=== PATIENT | male | born 1955 | race Caucasian/White ===

== ENCOUNTER 2017-03-23 13:58 | Observation (INO) ==
[2017-03-23] MEDS ORDERED: 0.9 % Sodium Chloride 1,000 ML IVC ONE (15:24)
[2017-03-23] MEDS ORDERED: Ondansetron ODT 4 MG TAB.RAPDIS SL ONE (15:24)
[2017-03-23 15:38] LABS: Bilirubin,Urine Negative (Negative); Blood,Urine Negative (Negative); Clarity,Urine Clear (Clear); Color,Urine Yellow (Yellow); Glucose,Urine (UA) Normal (Normal); Ketones,Urine Negative (Negative); Leukocyte Esterase,Urine Negative (Negative); Nitrite,Urine Negative (Negative); Protein,Urine Negative (Neg-Trace); Specific Gravity,Urine 1.008 (1.010-1.025); Urobilinogen,Urine Normal (Normal)
[2017-03-23] MEDS ORDERED: Aspirin 81 MG TAB.CHEW PO STA (15:43)
[2017-03-23 15:52] LABS: Basophils # 0.1 K/mcL (0.0-0.2); Basophils % 0.8 %; Eosinophils # 0.2 K/mcL (0.0-0.6); Hematocrit 47.4 % (37.5-50.1); Hemoglobin 15.9 g/dL (12.9-16.9); Immature Granulocytes % 0.3 % (0-4); Lymphocytes # 2.1 K/mcL (0.6-4.6); Lymphocytes % 32.1 %; Mean Corpuscular HGB Conc 33.5 g/dL (31.6-35.5); Mean Corpuscular Hemoglobin 28.9 pg (28.0-33.3); Mean Platelet Volume 11.3 fL (9.4-12.4); Monocytes # 0.4 K/mcL (0.0-1.3); Monocytes % 6.2 %; Neutrophils # 3.8 K/mcL (1.6-8.9); Platelet Count 182 K/mcL (140-400); Red Blood Count 5.51 M/mcL (4.19-5.50); Red Cell Distribution Width 13.6 % (11.5-14.5); Segmented Neutrophils % 57.6 %
[2017-03-23 16:07] LABS: Alanine Aminotransferase 25 Units/L (0-55); Albumin 5.2 g/dL (3.5-5.0); Albumin/Globulin Ratio 1.3 (1.1-2.2); Alkaline Phosphatase 67 Units/L (38-126); Aspartate Amino Transferase 26 Units/L (5-34); BUN/Creatinine Ratio 9 (6-26); Bilirubin,Direct 0.2 mg/dL (0.0-0.5); Blood Urea Nitrogen 9 mg/dL (8-26); Calcium 10.9 mg/dL (8.6-10.8); Carbon Dioxide 28 mEq/L (19-29); Chloride 103 mEq/L (98-109); Glucose 124 mg/dL (70-99); Lipase 42 Units/L (8-78); Osmolality,Calculated 292 (280-300); Potassium 4.2 mEq/L (3.5-4.5); Sodium 141 mEq/L (136-145); Total Protein 9.2 g/dL (6.0-8.3); eGFR For African Americans > 60 (> 60); eGFR For Non-African Americans > 60 (> 60)
[2017-03-23] MEDS: Nitroglycerin 0.4 MG TAB.SUBL SL PRN ×3 (16:09→16:23)
--- NOTE | 2017-03-23 16:44 | Emergency Department Note ---
Disposition Clinical Impression: Nausea Chest pain Qualifiers: Chest pain type: unspecified Qualified Code(s): R07.9 - Chest pain, unspecified Abdominal pain Qualifiers: Abdominal location: lower abdomen, unspecified Qualified Code(s): R10.30 - Lower abdominal pain, unspecified Disposition: Admitted As Inpatient Condition: Good Time of Disposition: 17:09 Abdominal Pain HPI - General Chief Complaint: ED Abdominal Pain Stated Complaint: ABD Pain Time Seen by Provider: 03/23/17 15:07 Source: patient Mode of arrival: ambulatory Limitations: no limitations Nursing Notes Reviewed: Yes Vital Signs Reviewed: Yes - History of Present Illness HPI Narrative: 61-year-old male complains of abdominal pain that has been chronic for several years. Patient states his pain has been getting progressively worse. When asked what changed today, patient states he feels more bloated and nauseous and constipated. When asked if patient has pain anywhere else. Patient states he has pain in lower left chest area that sharp radiation to his right shoulder that started earlier today. Patient has a cardiac history for multiple stents, hypertension, hyperlipidemia, diabetes currently uncontrolled, and NM. Pain Scale: 3 - Related Data Home Medications Medication Instructions Recorded Confirmed Insulin ASPART [Novolog Flexpen] 25 unit SQ TIDAC 09/02/15 03/23/17 Insulin Glargine,Hum.rec.anlog 80 unit SQ HS 09/02/15 03/23/17 [Basaglar Kwikpen U-100] Metformin HCl [Glucophage] 1,000 mg PO BID 09/02/15 03/23/17 Allopurinol [Zyloprim 100 MG] 200 mg PO DAILY 03/23/17 03/23/17 Ammonium Lactate [Jayne-Hydrolac] 1 appl TP BID 03/23/17 03/23/17 Aspirin Enteric Coated [Aspirin EC] 81 mg PO DAILY 03/23/17 03/23/17 Clopidogrel [Plavix] 75 mg PO DAILY 03/23/17 03/23/17 Fluticasone Propionate Nasal 50 mcg NS BID PRN 03/23/17 03/23/17 [Flonase] Gabapentin [Neurontin] 100 mg PO TID 03/23/17 03/23/17 Liraglutide [Victoza 2-Osvaldo] 1.2 mg SQ DAILY 03/23/17 03/23/17 Lisinopril [Zestril] 20 mg PO DAILY 03/23/17 03/23/17 Meloxicam [Meloxicam] 15 mg PO DAILY PRN 03/23/17 03/23/17 Ranitidine HCl [Zantac] 150 mg PO BID 03/23/17 03/23/17 Rosuvastatin [Crestor] 20 mg PO HS 03/23/17 03/23/17 Tizanidine HCl [Zanaflex] 2 - 4 mg PO Q8H PRN 03/23/17 03/23/17 Allergies Allergy/AdvReac Type Severity Reaction Status Date / Time No Known Allergies Allergy Verified 09/02/15 16:43 Review of Systems: Patient admits to anorexia, nausea, constipation, chest pain, abdominal pain, back pain, vision changes, lightheadedness, paresthesias bilateral hands All systems ED: reviewed and negative except as stated. Review of Systems: As Per HPI Abdominal Pain PMH - Past Medical History Medical history: Reports: arthritis, diabetes, hyperlipidemia, hypertension, kidney stones, myocardial infarction, other Male Surgical History: Reports: angioplasty/stent, herniorrhaphy Psychiatric history: Reports: no psych history - Social History Smoking status: Light tobacco smoker Alcohol use: Reports: none Drug use: Reports: none Physical Exam Vital Signs Temperature 97.8 F 03/23/17 13:59 Pulse Rate 93 03/23/17 13:59 Respiratory Rate 16 03/23/17 13:59 Blood Pressure 152/89 03/23/17 13:59 O2 Sat by Pulse Oximetry 95 03/23/17 13:59 Temperature 97.8 F 03/23/17 23:16 Pulse Rate 79 03/23/17 23:16 Respiratory Rate 16 03/23/17 23:16 Blood Pressure 131/76 03/23/17 23:16 O2 Sat by Pulse Oximetry 94 03/23/17 23:16 Oxygen Delivery Oxygen Delivery Room Air -General Appearance: Patient is a 61-year-old male who is alert and oriented 3 and in no acute distress -Neurological exam: Cranial nerves II-12 intact, no focal deficits observed, strength equal 5/5 bilaterally in upper and lower extremities, cerebellar motion test negative. Negative loss of sensation - Head Head exam: atraumatic, normocephalic, normal inspection - Eye Eye exam: Present: normal appearance, PERRL, EOMI, negative for scleral icterus negative for conjunctival pallor - ENT ENT exam: normal exam, normal oropharynx, mucous membranes moist - Neck Neck exam: Present: normal inspection, full ROM, trachea midline, negative JVD - Chest Chest inspection: Present: Patient has bilateral equal rise and fall of chest wall. Non-tender to palpation. - Respiratory Respiratory exam: Clear to auscultation bilaterally without wheezes rales or rhonchi Cardiovascular Cardiovascular exam: Present: Regular rate and rhythm normal heart sounds, without murmurs rubs or gallops. - Abdominal Exam Abdominal exam: Present: soft, some distention, with generalized tenderness with hernial defect. Bowel sounds normoactive throughout all 4 quadrants. Negative for hyper or hyperresonance. - Extremities Exam Extremities exam: Present: normal inspection, full ROM pulses equal regular bilaterally in upper and lower extremities - Back Exam Back exam: Present: normal inspection, full ROM. No CVA tenderness - Skin Skin exam: Present: warm, dry, intact, normal color - General Limitations: no limitations General appearance: alert Course - Reevaluation(s) Reevaluation #1: Patient seen and examined, ACS labs and imaging ordered. Time: 15:25 Reevaluation #2: pain 3/10 on 2nd nitro Time: 16:10 Reevaluation #3: Pain currently 1/10 after third nitroglycerin Time: 16:30 - Consultations Consultation #1: Dr. Jules hospitalist has accepted patient for admission 1709 hours Time: 17:09 Vital Signs Temperature 97.8 F 03/23/17 13:59 Pulse Rate 93 03/23/17 13:59 Respiratory Rate 16 03/23/17 13:59 Blood Pressure 152/89 03/23/17 13:59 O2 Sat by Pulse Oximetry 95 03/23/17 13:59 Temperature 97.8 F 03/23/17 23:16 Pulse Rate 79 03/23/17 23:16 Respiratory Rate 16 03/23/17 23:16 Blood Pressure 131/76 03/23/17 23:16 O2 Sat by Pulse Oximetry 94 03/23/17 23:16 Oxygen Delivery Oxygen Delivery Room Air Abdominal Pain - MDM Narrative Medical decision making narrative: Patient concern for ACS/NM with unstable angina, AAA, aortic dissection, PE Patient has a heart score of 6 place him in high risk category for adverse cardiac events CT abdomen and pelvis negative for any intra-abdominal abnormalities Patient's workup unremarkable with negative troponin and negative STEMI on EKG, no signs of ischemia on EKG. Given patient's pain symptoms that have been resolved with nitroglycerin and history for seizures cardiac events in the past recommend patient be admitted for further trending of troponins and cardiology examination follow-up. Patient was accepted for admission by the hospitalist Dr. Jules - Differential Diagnosis Differential Diagnosis: Likely: abdominal pain non-specific - Medical Records Medical records reviewed: Yes I reviewed the patient's medical records. - Lab Data Lab results reviewed: Yes I reviewed the patient's lab results. Lab results narrative: Short CBC 03/23/17 Range/Units 15:44 WBC 6.6 (4.3-11.1) K/mcL Hgb 15.9 (12.9-16.9) g/dL Hct 47.4 (37.5-50.1) % Plt Count 182 (140-400) K/mcL Neutrophils # 3.8 (1.6-8.9) K/mcL BMP 03/23/17 Range/Units 15:44 Sodium 141 (136-145) mEq/L Potassium 4.2 (3.5-4.5) mEq/L Chloride 103 (98-109) mEq/L Carbon Dioxide 28 (19-29) mEq/L BUN 9 (8-26) mg/dL Creatinine 0.95 (0.72-1.25) mg/dL Glucose 124 H (70-99) mg/dL Calcium 10.9 H (8.6-10.8) mg/dL Cardiac Enzymes 03/23/17 03/23/17 Range/Units 22:11 15:44 Troponin I 0.00 0.00 (0-0.03) ng/mL Liver Function 03/23/17 Range/Units 15:44 Total Bilirubin < 0.3 (0.2-1.2) mg/dL Direct Bilirubin 0.2 (0.0-0.5) mg/dL AST 26 (5-34) Units/L ALT 25 (0-55) Units/L Alkaline Phosphatase 67 (38-126) Units/L Albumin 5.2 H (3.5-5.0) g/dL Urine 03/23/17 Range/Units 15:02 Urine Color Yellow (Yellow) Urine Clarity Clear (Clear) Urine pH 7.0 (5.0-8.0) pH Units Ur Specific [place] 1.008 L (1.010-1.025) Urine Protein Negative (Neg-Trace) mg/dL Urine Glucose (UA) Normal (Normal) mg/dL Result diagrams: 03/23/17 15:44 03/23/17 15:44 Lab Results 03/23/17 03/23/17 03/23/17 Range/Units 15:02 15:44 15:44 WBC 6.6 (4.3-11.1) K/mcL RBC 5.51 H (4.19-5.50) M/mcL Hgb 15.9 (12.9-16.9) g/dL Hct 47.4 (37.5-50.1) % MCV 86.0 (83.0-100.0) fL MCH 28.9 (28.0-33.3) pg MCHC 33.5 (31.6-35.5) g/dL RDW 13.6 (11.5-14.5) % Plt Count 182 (140-400) K/mcL MPV 11.3 (9.4-12.4) fL Immature Gran % 0.3 (0-4) % Seg Neutrophils % 57.6 % Lymphocytes % 32.1 % Monocytes % 6.2 % Eosinophils % 3.0 % Basophils % 0.8 % Neutrophils # 3.8 (1.6-8.9) K/mcL Lymphocytes # 2.1 (0.6-4.6) K/mcL Monocytes # 0.4 (0.0-1.3) K/mcL Eosinophils # 0.2 (0.0-0.6) K/mcL Basophils # 0.1 (0.0-0.2) K/mcL Sodium 141 (136-145) mEq/L Potassium 4.2 (3.5-4.5) mEq/L Chloride 103 (98-109) mEq/L Carbon Dioxide 28 (19-29) mEq/L BUN 9 (8-26) mg/dL Creatinine 0.95 (0.72-1.25) mg/dL Est GFR ( Amer) > 60 (> 60) Est GFR (Non-Af Amer) > 60 (> 60) BUN/Creatinine Ratio 9 (6-26) Glucose 124 H (70-99) mg/dL Calculated Osmolality 292 (280-300) Lactic Acid (0.5-2.2) mmol/L Calcium 10.9 H (8.6-10.8) mg/dL Total Bilirubin < 0.3 (0.2-1.2) mg/dL Direct Bilirubin 0.2 (0.0-0.5) mg/dL Indirect Bilirubin 0.1 (0.0-1.2) mg/dL AST 26 (5-34) Units/L ALT 25 (0-55) Units/L Alkaline Phosphatase 67 (38-126) Units/L Troponin I (0-0.03) ng/mL Serum Total Protein 9.2 H (6.0-8.3) g/dL Albumin 5.2 H (3.5-5.0) g/dL Globulin 4.0 H (2.4-3.5) g/dL Albumin/Globulin Ratio 1.3 (1.1-2.2) Lipase 42 (8-78) Units/L Urine Color Yellow (Yellow) Urine Clarity Clear (Clear) Urine pH 7.0 (5.0-8.0) pH Units Ur Specific [place] 1.008 L (1.010-1.025) Urine Protein Negative (Neg-Trace) mg/dL Urine Glucose (UA) Normal (Normal) mg/dL Urine Ketones Negative (Negative) mg/dL Urine Blood Negative (Negative) Urine Nitrite Negative (Negative) Urine Bilirubin Negative (Negative) Urine Urobilinogen Normal (Normal) mg/dL Ur Leukocyte Esterase Negative (Negative) Ur Culture Indicated? NO (NO) 03/23/17 03/23/17 Range/Units 15:44 15:44 WBC (4.3-11.1) K/mcL RBC (4.19-5.50) M/mcL Hgb (12.9-16.9) g/dL Hct (37.5-50.1) % MCV (83.0-100.0) fL MCH (28.0-33.3) pg MCHC (31.6-35.5) g/dL RDW (11.5-14.5) % Plt Count (140-400) K/mcL MPV (9.4-12.4) fL Immature Gran % (0-4) % Seg Neutrophils % % Lymphocytes % % Monocytes % % Eosinophils % % Basophils % % Neutrophils # (1.6-8.9) K/mcL Lymphocytes # (0.6-4.6) K/mcL Monocytes # (0.0-1.3) K/mcL Eosinophils # (0.0-0.6) K/mcL Basophils # (0.0-0.2) K/mcL Sodium (136-145) mEq/L Potassium (3.5-4.5) mEq/L Chloride (98-109) mEq/L Carbon Dioxide (19-29) mEq/L BUN (8-26) mg/dL Creatinine (0.72-1.25) mg/dL Est GFR ( Amer) (> 60) Est GFR (Non-Af Amer) (> 60) BUN/Creatinine Ratio (6-26) Glucose (70-99) mg/dL Calculated Osmolality (280-300) Lactic Acid 1.7 (0.5-2.2) mmol/L Calcium (8.6-10.8) mg/dL Total Bilirubin (0.2-1.2) mg/dL Direct Bilirubin (0.0-0.5) mg/dL Indirect Bilirubin (0.0-1.2) mg/dL AST (5-34) Units/L ALT (0-55) Units/L Alkaline Phosphatase (38-126) Units/L Troponin I 0.00 (0-0.03) ng/mL Serum Total Protein (6.0-8.3) g/dL Albumin (3.5-5.0) g/dL Globulin (2.4-3.5) g/dL Albumin/Globulin Ratio (1.1-2.2) Lipase (8-78) Units/L Urine Color (Yellow) Urine Clarity (Clear) Urine pH (5.0-8.0) pH Units Ur Specific [place] (1.010-1.025) Urine Protein (Neg-Trace) mg/dL Urine Glucose (UA) (Normal) mg/dL Urine Ketones (Negative) mg/dL Urine Blood (Negative) Urine Nitrite (Negative) Urine Bilirubin (Negative) Urine Urobilinogen (Normal) mg/dL Ur Leukocyte Esterase (Negative) Ur Culture Indicated? (NO) - Radiology Data Radiology results reviewed: Yes I reviewed the patient's radiology results. Abdomen/Pelvis CT 03/23/17 15:25 IMPRESSION: No acute abnormality. D/ / Vlad Escudero MD / Vlad Escudero MD Interpreting Provider: Vlad Escudero MD - EKG Data EKG attestation: Yes I reviewed and interpreted this EKG. EKG shows normal: sinus rhythm Attestation Statement - Attestation Attestation: I persoNALLY INTERVIEWED AND examined this patient and my medical decision- making was reviewed with the Resident Physician, Dr. Nicholson. I agree with the documented findings, disposition and treatment plan as described except to the extent set forth below. Patient is a pleasant 61-year-old white male with history of diabetes hypertension hyperlipidemia and known CAD who presents to the emergency department today with complaints of substernal pain radiating through to his back associated with intense nausea. Patient states that this began this morning he was having difficulty sleeping and he woke around 5:30 and was having symptoms which resolved after about 30 minutes. Went back to bed and woke up at 11:00 today and had a recurrence of these symptoms that has been constant since that time. Patient denies any diaphoresis, no vomiting, just states "I just do not feel good". Patient also has had chronic symptoms of lower abdominal pain that radiated around to his right flank area that he reports he has had for months. Patient states this is still bothering him but has increased in intensity or changed in character or location as in the past. He has been following with his family doctor for these symptoms and they have been working on getting better control his blood sugar. I agree with patient's physical exam findings as documented for me he had significant substernal pain that was not reproducible with palpation of his radiating through to his back and patient states earlier this morning it was radiating to his right shoulder area. Patient received aspirin and nitroglycerin and I was in the room during the nitroglycerin trial which he obtained significant relief with the nitroglycerin to a 1 out of 10 in severity. Patient tolerated this well and blood pressure remained stable. Patient had full lab evaluation to also evaluate for this chronic abdominal pain as well as CT abdomen and pelvis. All of his testing was within normal limits including a negative troponin of 0.00. EKG showed no acute ischemic change was unchanged from his prior EKG. His CT abdomen and pelvis was unremarkable. Due to the patient's new substernal pain that was relieved with nitroglycerin and his significant cardiac history we will bring him in for further evaluation of this discomfort. Patient remains hemodynamically stable at this time and the case was discussed with the hospitalist who admitted the patient. Heart Score - Score History: Highly Suspicious EKG: Non Specific repolarisation Disturbance Age: 45-65 Risk Factors: Equal/Greater than 3 risk factor or history of atherosclerotic disease Troponin: Less than normal limit HEART Score Total: 6
[2017-03-23] MEDS ORDERED: Nitroglycerin 1 INCH/GM PACKET TP ONE (16:52)
--- NOTE | 2017-03-23 18:07 | Internal Med History&Physical ---
Date of Encounter: 03/23/17 Time of Encounter: 18:00 Assessment and Plan (1) Chest pain Current visit: Yes Status: Acute chest pain free now. trop negative first set and EKG with no acute changes given significant cardiac history, will trend trop nitro prn for chest pain, continuous cardiac telemetry. may be 2/2 GERD /gastritis as he says it gets worse with food and its burning and he has h/o ventral hernia. however, given h/o 4 stents placed, will complete cardiac workup. will order nuclear stress test for tomm Qualifiers: Chest pain type: unspecified Qualified Code(s): R07.9 - Chest pain, unspecified (2) CAD (coronary artery disease) Current visit: Yes Status: Acute h/o CAD with 4 stents placed. follows with cardio outside will continue asa and plavix and other home meds Qualifiers: Coronary Disease-Associated Artery/Lesion type: [place] artery [place] vs. transplanted heart: [place] heart Associated angina: with unstable angina Qualified Code(s): I25.110 - Atherosclerotic heart disease of [place] coronary artery with unstable angina pectoris (3) COPD (chronic obstructive pulmonary disease) Current visit: Yes Status: Acute stable continue home meds Qualifiers: COPD type: emphysema Emphysema type: unspecified Qualified Code(s): J43.9 - Emphysema, unspecified (4) CECI (obstructive sleep apnea) Current visit: Yes Status: Acute will order CPAP here tonight. advised to wear daily at night. Internal Medicine - H&P: HPI Chief complaint: epigastric pain Admitted From: Home Plans for Post Hospital Care: Home History of present illness: Mr. Schofield is a 61 year old male with history of diabetes hypertension hyperlipidemia, CHF , CECI and known CAD who presents to the emergency department today with complaints of epigastric pain radiating through to his back associated with nausea. Patient states the pain woke him up from sleep. he states the pain is stabbing and burning. Patient denies any diaphoresis, no vomiting. HE has exertional dyspnea at baseline and states that he is not compliant with CPAP, they are trying to fix his mask. he has h/o ventral hernia too and says that the pain is worse with food. Patient received aspirin and nitroglycerin at ED and he says that helped with the chest pain. he has a negative troponin of 0.00. EKG showed no acute ischemic change was unchanged from his prior EKG. His CT abdomen and pelvis was unremarkable. he smokes half a pack everyday. he has h/o 4 stents placed 4 yrs ago and is on aspirin and plavix both. Past Med Surg Social Fam HX - Past Medical History Medical history: arthritis, diabetes, hyperlipidemia, hypertension, kidney stones, myocardial infarction, other Psychiatric history: no psych history - Social History Smoking Status: Light tobacco smoker Smokeless Tobacco Status: No Alcohol use: none Drug use: none Internal Medicine - H&P: Meds Insulin ASPART [Novolog Flexpen] 25 unit SQ TIDAC 09/02/15 [History] Insulin Glargine,Hum.rec.anlog [Basaglar Kwikpen U-100] 80 unit SQ HS 09/02/15 [ History] Metformin HCl [Glucophage] 1,000 mg PO BID 09/02/15 [History] Allopurinol [Zyloprim 100 MG] 200 mg PO DAILY 03/23/17 [History] Ammonium Lactate [Jayne-Hydrolac] 1 appl TP BID 03/23/17 [History] Aspirin Enteric Coated [Aspirin EC] 81 mg PO DAILY 03/23/17 [History] Clopidogrel [Plavix] 75 mg PO DAILY 03/23/17 [History] Fluticasone Propionate Nasal [Flonase] 50 mcg NS BID PRN 03/23/17 [History] Gabapentin [Neurontin] 100 mg PO TID 03/23/17 [History] Liraglutide [Victoza 2-Osvaldo] 1.2 mg SQ DAILY 03/23/17 [History] Lisinopril [Zestril] 20 mg PO DAILY 03/23/17 [History] Meloxicam [Meloxicam] 15 mg PO DAILY PRN 03/23/17 [History] Ranitidine HCl [Zantac] 150 mg PO BID 03/23/17 [History] Rosuvastatin [Crestor] 20 mg PO HS 03/23/17 [History] Tizanidine HCl [Zanaflex] 2 - 4 mg PO Q8H PRN 03/23/17 [History] Allergies No Known Allergies Allergy (Verified 09/02/15 16:43) All Systems PM: A 10-system review of systems was performed and is negative for pertinent findings except as documented above in the HPI. - Constitutional Constitutional: as per HPI - EENT Eyes: as per HPI Ears: as per HPI Nose, mouth and throat: as per HPI - Breasts Breasts: as per HPI - Cardiovascular Cardiovascular ROS IM: as per HPI - Respiratory Respiratory: as per HPI - Gastrointestinal Gastrointestinal: as per HPI - Genitourinary Genitourinary ROS male: as per HPI - Musculoskeletal Musculoskeletal ROS IM: as per HPI - Integumentary Integumentary IM: as per HPI - Neurological Neurological ROS: as per HPI - Psychiatric Psychiatric: as per HPI - Endocrine Endocrine IM: as per HPI - Hematologic/Lymphatic Hematologic/Lymphatic: as per HPI - Constitutional Vitals: Temp Pulse Resp BP Pulse Ox 97.8 F 85 12 142/86 94 03/23/17 13:59 03/23/17 16:34 03/23/17 16:34 03/23/17 16:34 03/23/17 16:34 General appearance: Present: A&O X 3, no acute distress Exam: neck- supple chest- b/l clear, no added sounds CVS-s1 and s2, no mrG abd-soft, non tender , bs are present ext- no edema Internal Med - H&P Results - Labs CBC & Chem 7: 03/23/17 15:44 03/23/17 15:44
[2017-03-23] MEDS ORDERED: *HR* OxyCODONE Immed Rel 5 MG TABLET PO PRN (18:16)
[2017-03-23] MEDS ORDERED: *HR* Morphine 2 MG/ML SYRINGE IVP PRN (18:16)
[2017-03-23] MEDS ORDERED: Naloxone 0.4 MG/ML INJ IVP PRN (18:16)
[2017-03-23] MEDS ORDERED: Ondansetron 4 MG/2 ML VIAL IVP PRN (18:16)
[2017-03-23] MEDS ORDERED: Fluticasone Propionate Nasal 50 MCG/SPRAY BOTTLE NS PRN (18:19)
[2017-03-23] MEDS: Pantoprazole 40 MG VIAL IVP SCH (18:52)
[2017-03-23] MEDS ORDERED: Insulin DETEMIR 100 UNIT/ML X5UNITS SQ SCH (21:00)
[2017-03-23] MEDS: Gabapentin 100 MG CAPSULE PO SCH (21:45)
[2017-03-24] MEDS ORDERED: Regadenoson 0.4 MG/5 ML SYRINGE IVP ONE (05:49)
[2017-03-24] MEDS ORDERED: *HR* Heparin 5,000 UNIT/ML VIAL SQ SCH (06:00)
[2017-03-24] MEDS ORDERED: Aspirin Enteric Coated 81 MG Tablet PO SCH (09:00)
[2017-03-24] MEDS ORDERED: Lisinopril 20 MG TABLET PO SCH (09:00)
[2017-03-24] MEDS: Pantoprazole 40 MG VIAL IVP SCH (09:21)
[2017-03-24] MEDS: Gabapentin 100 MG CAPSULE PO SCH ×2 (09:22→14:15)
[2017-03-24 09:43] LABS: BUN/Creatinine Ratio 9 (6-26); Blood Urea Nitrogen 9 mg/dL (8-26); Calcium 9.8 mg/dL (8.6-10.8); Carbon Dioxide 25 mEq/L (19-29); Chloride 107 mEq/L (98-109); Chol/HDL Ratio 3.8 (0-4.9); Cholesterol 123 mg/dL (< 200); Glucose 206 mg/dL (70-99); HDL Cholesterol 32 mg/dL (40-59); LDL Cholesterol,Calculated 30 mg/dL (0-99); Magnesium 1.7 mg/dL (1.6-2.6); Osmolality,Calculated 295 (280-300); Phosphorous 3.3 mg/dL (2.3-4.7); Potassium 4.2 mEq/L (3.5-4.5); Sodium 140 mEq/L (136-145); Triglycerides 307 mg/dL (< 150); eGFR For African Americans > 60 (> 60); eGFR For Non-African Americans > 60 (> 60)
[2017-03-24 10:03] LABS: Basophils # 0.1 K/mcL (0.0-0.2); Basophils % 0.9 %; Eosinophils # 0.2 K/mcL (0.0-0.6); Hematocrit 40.1 % (37.5-50.1); Immature Granulocytes % 0.3 % (0-4); Lymphocytes # 1.8 K/mcL (0.6-4.6); Lymphocytes % 27.6 %; Mean Corpuscular HGB Conc 33.4 g/dL (31.6-35.5); Mean Corpuscular Hemoglobin 29.2 pg (28.0-33.3); Mean Corpuscular Volume 87.4 fL (83.0-100.0); Mean Platelet Volume 12.1 fL (9.4-12.4); Monocytes # 0.4 K/mcL (0.0-1.3); Monocytes % 6.5 %; Neutrophils # 4.1 K/mcL (1.6-8.9); Platelet Count 162 K/mcL (140-400); Red Blood Count 4.59 M/mcL (4.19-5.50); Red Cell Distribution Width 13.7 % (11.5-14.5); Segmented Neutrophils % 61.7 %
[2017-03-24 10:15] LABS: Hemoglobin 13.4 g/dL (12.9-16.9)
--- NOTE | 2017-03-24 11:37 | Nuclear Medicine Stress Report ---
Regadenoson Nuclear Stress Name: Pancho Schofield Date of Study: 03/24/2017 Date: 1955 Ht: 69.0 in Medical Record#: [id number] Age: 61 Wt: 224.0 lb Gender: Male Order #: [id number] Location: [facility] IP Room: [facility] Supervising Provider: Jayson Hernandez CNP Reading Physician: Kaycee Flores DO Ordering Physician: Pau Rodríguez CNP Primary Care Physician: BO Morillo Stress Technologist: [place]ico Sibley, DRUG PURCH[employer]ER, CPFT Order Entry Representative: Steven Quintero Indications: Chest Pain Impression: Perfusion imaging was negative for ischemia or infarct. Fixed inferior wall and apical perfusion defect consistent with artifact. Pharmacologic ECG was negative for ischemia at the level of heart rate achieved. Patient had 9/10 chest pain with pharmacologic stress - this is a nonspecific finding. Recommend clinical correlation. Gated EF = >70%. History: Hypertension Diabetes Hypercholesteremia History of Smoking Prior PCI Stress Test Summary: Stress Test Type: Pharmacologic Regadenoson 0.4mg/5ml given IV Baseline Information: Initial Heart Rate: 81 Blood Pressure: 138/76 Stress Information: Stress Time: 4 min 00 sec Test Terminated Due to (primary): As per protocol Maximum Blood Pressure: 124/76 Maximum Heart Rate: 100 Percent Maximum Heart Rate Achieved: 63 Double Product: 02131 METS Reached: 1 Symptoms: Chest pain, Shortness of breath Nuclear Summary: SPECT myocardial perfusion imaging using Tc99m Sestamibi given intravenously was performed at rest and following cardiac stress testing. The resting images were obtained following initial dose of 10.8 mCi. Following stress an additional dose of 31.8 mCi was given at peak exercise or 30 seconds post regadenoson infusion. Medication Given: Time Medication Dose Units Route Findings: Stress Note * Resting ECG demonstrated normal sinus rhythm with first degree AVB. * Pharmacologic stress ECG is negative for ischemia at level of heart rate achieved. * No arrhythmias were noted during stress. * Patient had chest pain/pressure during stress. Hemodynamic responses * Normal hemodynamic responses to pharmacologic stress. Study Quality * Study quality was fair. Gated EF > 70% * Gated EF > 70%. Left Ventricle * The left ventricle is not dilated. TID * No evidence of transient ischemic dilatation. Lung Uptake * There is no evidence of increase lung uptake. PERFUSION * There is a medium sized, moderate intensity primarily fixed perfusion defect involving the inferior wall and apex. Wall motion and thickening appear normal. Findings represent artifact. * Other segments demonstrate normal rest and stress perfusion. Updated by Kaycee Flores on 03/24/2017 11:25:24 AM electronically signed on 03/24/2017 11:30:38 AM with status of Final
[2017-03-24 12:14] LABS: Bilirubin,Indirect 0.2 mg/dL (0.0-1.2); Bilirubin,Total 0.4 mg/dL (0.2-1.2)
[2017-03-24 15:01] VITALS: BP 126/83
--- NOTE | 2017-03-24 16:32 | Discharge Summary ---
Date of Encounter: 03/24/17 Time of Encounter: 16:00 - Discharge Diagnosis (1) Chest pain Priority: Primary Status: Acute Comments: Patient denies chest pain at this time. He reports low abdomen left mid chest pain yesterday on arrival, he denies either at this time. Continue statin, Plavix, and aspirin. Stress test was negative for ischemia or infarct with a gaited EF of greater than 70%. Qualifiers: Chest pain type: unspecified Qualified Code(s): R07.9 - Chest pain, unspecified (2) CAD (coronary artery disease) Priority: Secondary Status: Chronic Comments: Patient is status post coronary artery stents. He denies chest pain. Continue aspirin, Plavix, statin. Qualifiers: Coronary Disease-Associated Artery/Lesion type: [place] artery [place] vs. transplanted heart: [place] heart Associated angina: with unstable angina Qualified Code(s): I25.110 - Atherosclerotic heart disease of [place] coronary artery with unstable angina pectoris (3) Abdominal pain Priority: Secondary Status: Acute Comments: Resolved. Patient denies abdominal pain, nausea, vomiting, diarrhea. Abdomen is soft and nontender, distended, bowel sounds are present. Abdomen/Pelvis CT 03/23/17 15:25 IMPRESSION: No acute abnormality. D/ / Vlad Escudero MD / Vlad Escudero MD Interpreting Provider: Vlad Escudero MD Qualifiers: Abdominal location: lower abdomen, unspecified Qualified Code(s): R10.30 - Lower abdominal pain, unspecified (4) COPD (chronic obstructive pulmonary disease) Priority: Secondary Status: Chronic Comments: No acute exacerbation. Lungs are clear anteriorly and posteriorly. Patient does not appear to take any medications at home. He denies need for inhalers. Qualifiers: COPD type: emphysema Emphysema type: unspecified Qualified Code(s): J43.9 - Emphysema, unspecified (5) CECI (obstructive sleep apnea) Priority: Secondary Status: Chronic Comments: CPAP while inpatient. Continue to wear CPAP at home nightly. (6) DVT prophylaxis Priority: Secondary Status: Acute Comments: Heparin subcutaneous daily. Patient is ambulatory and observation status. - Discharge Medications Home Medications: Insulin ASPART [Novolog Flexpen] 25 unit SQ TIDAC 09/02/15 [History] Insulin Glargine,Hum.rec.anlog [Basaglar Kwikpen U-100] 80 unit SQ HS 09/02/15 [ History] Metformin HCl [Glucophage] 1,000 mg PO BID 09/02/15 [History] Allopurinol [Zyloprim 100 MG] 200 mg PO DAILY 03/23/17 [History] Ammonium Lactate [Jayne-Hydrolac] 1 appl TP BID 03/23/17 [History] Aspirin Enteric Coated [Aspirin EC] 81 mg PO DAILY 03/23/17 [History] Clopidogrel [Plavix] 75 mg PO DAILY 03/23/17 [History] Fluticasone Propionate Nasal [Flonase] 50 mcg NS BID PRN 03/23/17 [History] Gabapentin [Neurontin] 100 mg PO TID 03/23/17 [History] Liraglutide [Victoza 2-Osvaldo] 1.2 mg SQ DAILY 03/23/17 [History] Lisinopril [Zestril] 20 mg PO DAILY 03/23/17 [History] Meloxicam 15 mg PO DAILY PRN 03/23/17 [History] Ranitidine HCl [Zantac] 150 mg PO BID 03/23/17 [History] Rosuvastatin [Crestor] 20 mg PO HS 03/23/17 [History] Tizanidine HCl [Zanaflex] 2 - 4 mg PO Q8H PRN 03/23/17 [History] Allergies/Adverse Reactions: Allergies No Known Allergies Allergy (Verified 09/02/15 16:43) Procedures/tests Complete & Pending: Procedures Performed prior 72 hours Category Date Time Status NM angelique perf SPECT multi [NM] Routine Exams 03/23/17 18:22 Taken SP pharm nuclear stress Routine Y 03/24/17 07:15 Completed Date of admission: 03/23/17 17:16 Primary care physician: Marlin Pearson Discharging clinician: Dayna Ron Anticipated date of discharge: 03/24/17 - Patient Status Disposition: Home, Self-Care Functional capacity at discharge: independent ambulation Overall status at discharge: patient is back to baseline - Discharge Instructions Follow Up With: Marlin Pearson, [employer] [Primary Care Provider] - Additional Instructions: Follow up with cardiology as soon as you can, call in the morning for an appointment with Dr. Bianchi at [facility]. Follow up with your PCP in the next week to 10 days for a recheck. Return to the ER as needed for any other problems or concerns or if your symptoms return or worsen. Resume your normal medications and activities. - Diet and Activity Activity: increase activity as tolerated Diet: advance to your usual diet Hospital course: Mr. Schofield is a 61 year old male with past medical history of CECI, COPD, CAD, DM, CHF, who presented to the emergency department yesterday with complaints of epigastric pain radiating through to his back, as well as lower abdominal pain with associated nausea. He states that the pain awakened him from sleep as stabbing and burning. He denies any radiating vomiting, diaphoresis, or diarrhea. He reports baseline exertional dyspnea and that he is not compliant with his CPAP at night since they are trying to fix his mask. He received nitroglycerin and aspirin in the emergency department he says helped with this chest pain. He smokes a half pack a day and says he is not ready to quit at this time, he is able to quit on his own when he is ready. She has a past medical history for cardiac stents placed 4 years ago at [facility] by Dr. Bianchi, who is still his policy writer typist. EKG was normal sinus rhythm with no ST changes and was unchanged from prior EKG. CT abdomen and pelvis showed no acute abnormality. Chest x-ray was negative for any acute cardiopulmonary disease. Troponins were negative 2. Patient had a stress test today that was negative for ischemia or infarct with a gaited EF of greater than 70%. Patient reported 9/10 chest pain with pharmacologic stress that resolved after testing. He says he has been up walking in his room and denies chest pain with exertion. Patient is going to follow up with his policy writer typist at [facility] as soon as he can get an appointment. He will follow up with primary care in the next 7- 10 days. Patient is pain-free at this time, pain was most likely related to reflux disease/gastritis as he says the pain became worse with food and was burning and has history of ventral hernia. Abdomen is soft and distended, nontender to palpation, bowel sounds are present. Patient already takes Zantac 150 mg by mouth twice a day at home. He should continue this. We discussed changing diet and times of meals and frequency of meals. Patient was agreeable and verbalized understanding. Labs are within normal limits. Vital signs are stable. Patient is ready and appropriate for discharge. - Time Spent with Patient Total time spent providing and/or coordinating discharge services: Less than 30 minutes - Constitutional Vitals: Temp Pulse Resp BP Pulse Ox 98.8 F 83 14 126/83 94 03/24/17 15:00 03/24/17 15:00 03/24/17 15:00 03/24/17 15:00 03/24/17 15:00 General appearance: Present: cooperative, A&O X 3, pleasant, no acute distress, answers questions appropriately - Head Head exam: Present: normal inspection - Eye Eye exam: Present: normal appearance, conjuntiva pink. Absent: EOMI, nystagmus - ENT ENT exam: Present: mucous membranes moist, normal exam, normal external ear exam - Neck Neck exam general surgery: Present: normal inspection. Absent: lymphadenopathy , tenderness - Respiratory Respiratory exam: Present: CTAB. Absent: chest wall tenderness, rales, rhonchi , stridor, wheezes - Cardiovascular Cardiovascular exam: Present: RRR, +S1, +S2. Absent: clicks, diastolic murmur, gallop, systolic murmur - GI/Abdominal GI/Abdominal exam: Present: normal bowel sounds, soft. Absent: hepatomegaly, tenderness - Extremities Exam Extremities exam: Present: normal capillary refill, normal inspection, warm, radial pulses palpable and symmetrical. Absent: pedal edema, tenderness - Neurological Exam Neurological exam: Present: alert, oriented X3, no focal deficits, strengths equal and symetr throughout. Absent: facial droop, speech deficit - Skin Skin exam: Present: dry, intact, normal color, warm. Absent: rash
--- NOTE | 2017-03-25 06:59 | Electrocardiograph Report ---
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
--- NOTE | 2017-03-25 07:02 | Electrocardiograph Report ---
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
== END 2017-03-24 17:07 | disposition home or self-care (01) ==
LOC: 3BNU 13:58 → EMEROO 13:58 → 3BNU 18:33
PROVIDERS: ADMIT Nurse Practitioner Family; ATTEND Nurse Practitioner Family

== ENCOUNTER 2019-02-22 15:39 | Inpatient (IN) ==
[2019-02-22] MEDS ORDERED: 0.9 % Sodium Chloride 1,000 ML IVC ONE ×2 (16:00→19:05)
--- NOTE | 2019-02-22 16:15 | Emergency Department Note ---
Disposition Clinical Impression: Pneumonia, Lung mass, Acute kidney injury Disposition: Admitted As Inpatient Condition: Fair Referrals: Denisha Lozoya CNP [Primary Care Provider] - Forms: ED Satisfaction Letter Time of Disposition: 21:00 General Adult HPI - General Chief complaint: ED Upper Respiratory Infection Stated complaint: congestion, runny nose, cough Time Seen by Provider: 02/22/19 15:55 Source: patient, family Mode of arrival: private vehicle Limitations: no limitations Nursing Notes Reviewed: Yes Vital Signs Reviewed: Yes - History of Present Illness HPI Narrative: Pancho Schofield is a 63 year old male with a history of three prior PR's with four stents placed and type 2 DM who presents with complaint of congestion, cough, fever, chills, runny nose, diffuse myalgias, dysuria and nausea for three days. Patient states today the diffuse myalgias became worse, and he began experiencing abdominal pain, particularly in the area of his known umbilical hernia. Patient denies hematuria, hematochezia, melena or rash, but reports he cut himself on his left arm and leg on a cow fence within the last week; patient reports his last tetanus shot was within the last 3 years. Patient additionally reports possible history of liver disease and gout; pt denies CHF but reports being placed on Lasix for peripheral edema. Patient quit smoking 2 years ago. Patient denies any other acute medical complaints at this time. Pain Scale: 9 - Related Data Home Medications Medication Instructions Recorded Confirmed Insulin ASPART [Novolog Flexpen] 25 unit SQ TIDAC 09/02/15 02/22/19 Metformin HCl [Glucophage] 1,000 mg PO BID 09/02/15 02/22/19 Aspirin Enteric Coated [Aspirin EC] 81 mg PO DAILY 03/23/17 02/22/19 Clopidogrel [Plavix] 75 mg PO DAILY 03/23/17 02/22/19 Fluticasone Propionate Nasal 50 mcg NS DAILY PRN 03/23/17 02/22/19 [Flonase] Rosuvastatin [Crestor] 20 mg PO HS 03/23/17 02/22/19 Allopurinol [Zyloprim 300 MG] 300 mg PO DAILY 02/22/19 02/22/19 Chlorthalidone 50 mg PO DAILY 02/22/19 02/22/19 Gabapentin 800 mg PO TID 02/22/19 02/22/19 Insulin Glargine,Hum.rec.anlog 80 unit SQ HS 02/22/19 02/22/19 [Basagldilip Ricopen U-100] Lisinopril [Zestril] 40 mg PO DAILY 02/22/19 02/22/19 Pioglitazone [Actos] 45 mg PO DAILY 02/22/19 02/22/19 Plecanatide [Trulance] 3 mg PO DAILY 02/22/19 02/22/19 Spironolactone [Aldactone] 50 mg PO DAILY 02/22/19 02/22/19 Allergies Allergy/AdvReac Type Severity Reaction Status Date / Time No Known Allergies Allergy Verified 10/09/18 10:02 All systems ED: reviewed and negative except as stated. Constitutional: Reports: fever, chills Eyes: Reports: eye pain ("burning" ) ENT ED: Reports: congestion Cardiovascular: Reports: dyspnea on exertion, orthopnea, other (Patient denies chest pain but reports feeling "congested" throughout his chest) Respiratory: Reports: cough, dyspnea, wheezes, sputum production. Denies: hemoptysis Gastrointestinal: Reports: abdominal pain, nausea. Denies: diarrhea, hematemesis, hematochezia Genitourinary: Reports: dysuria. Denies: hematuria, discharge Musculoskeletal: Reports: arthralgia, myalgia Integumentary: Reports: abrasion (healing abraisons noted to left forearm and left lower rodriguez ). Denies: rash Neurological: Reports: headache. Denies: confusion Endocrine: Reports: fatigue Past Medical History - Past Medical History Medical history: Reports: COPD, coronary artery disease, diabetes, GERD, hyperlipidemia, hypertension, myocardial infarction Surgical history: Reports: angioplasty/stent, herniorrhaphy Psychiatric history: Reports: no psych history - Social History Smoking Status: Never smoker Smokeless Tobacco Status: No Alcohol use: Reports: none Drug use: Reports: none Physical Exam - General Limitations: no limitations General appearance: alert, anxious (mildly anxious; reclining in an upright position in bed) - Head Head exam: atraumatic - Eye Eye exam: Present: PERRL, EOMI, conjunctival injection. Absent: periorbital swelling, periorbital tenderness - ENT ENT exam: mucous membranes moist - Neck Neck exam: Present: full ROM, trachea midline - Chest Chest inspection: Present: symmetric chest wall rise, tenderness. Absent: rash - Respiratory Respiratory exam: Present: wheezes, other (crackles in bilateral bases) - Cardiovascular Cardiovascular exam: Present: normal rhythm, tachycardia. Absent: systolic murmur, diastolic murmur, gallop, clicks - Abdominal Exam Abdominal exam: Present: tenderness (over area of known umbilical hernia ), distention (mild distention; no fluid wave; no tympany ). Absent: guarding, rebound, rigidity, Herron's sign, tenderness at McBurney's Point, pulsatile mass - Extremities Exam Extremities exam: Present: full ROM - Neurological Exam Neurological exam: Present: alert, oriented X3 - Psychiatric Psychiatric exam: Present: normal affect, normal mood - Skin Skin exam: Present: warm, dry, intact, other (Well healing abrasions noted to the left forearm and left lateral lower rodriguez region; no active drainage or streaking). Absent: rash Course Vital Signs Temperature 102.6 F H 02/22/19 15:40 Pulse Rate 122 02/22/19 15:40 Respiratory Rate 20 02/22/19 15:40 Blood Pressure 156/84 02/22/19 15:40 O2 Sat by Pulse Oximetry 94 02/22/19 15:40 Temperature 103 F H 02/22/19 18:32 Pulse Rate 126 02/22/19 20:24 Respiratory Rate 20 02/22/19 20:24 Blood Pressure 110/57 02/22/19 20:24 O2 Sat by Pulse Oximetry 100 02/22/19 20:24 Oxygen Delivery Oxygen Delivery Nasal Cannula Medical Decision Making - Lab Data Result diagrams: 02/22/19 16:06 02/22/19 16:06 Lab Results 02/22/19 02/22/19 02/22/19 Range/Units 16:06 16:06 16:06 WBC 9.9 (4.3-11.1) K/mcL RBC 4.37 (4.19-5.50) M/mcL Hgb 12.7 L (12.9-16.9) g/dL Hct 38.7 (37.5-50.1) % MCV 88.6 (83.0-100.0) fL MCH 29.1 (28.0-33.3) pg MCHC 32.8 (31.6-35.5) g/dL RDW 14.3 (11.5-14.5) % Plt Count 178 (140-400) K/mcL MPV 12.5 H (9.4-12.4) fL Immature Gran % 0.6 (0-4) % Seg Neutrophils % 85.3 % Lymphocytes % 8.2 % Monocytes % 4.0 % Eosinophils % 1.6 % Basophils % 0.3 % Neutrophils # 8.4 (1.6-8.9) K/mcL Lymphocytes # 0.8 (0.6-4.6) K/mcL Monocytes # 0.4 (0.0-1.3) K/mcL Eosinophils # 0.2 (0.0-0.6) K/mcL Basophils # 0.0 (0.0-0.2) K/mcL Sodium 137 (136-145) mEq/L Potassium 3.9 (3.5-5.1) mEq/L Chloride 99 (98-107) mEq/L Carbon Dioxide 26 (23-29) mEq/L BUN 20 (8-23) mg/dL Creatinine 1.35 H (0.70-1.30) mg/dL Est GFR ( Amer) > 60 (> 60) Est GFR (Non-Af Amer) 53 L (> 60) BUN/Creatinine Ratio 15 (6-26) Glucose 155 H (70-105) mg/dL Calculated Osmolality 290 (280-300) Lactic Acid 1.9 (0.5-2.2) mmol/L Calcium 10.0 (8.6-10.3) mg/dL Phosphorus 1.5 L (2.7-4.5) mg/dL Magnesium 1.0 L (1.6-2.6) mg/dL Total Bilirubin 0.4 (0.3-1.0) mg/dL Direct Bilirubin 0.1 (0.0-0.2) mg/dL Indirect Bilirubin 0.3 (0.0-1.2) mg/dL AST 18 (13-39) Units/L ALT 16 (7-52) Units/L Alkaline Phosphatase 52 (34-104) Units/L Troponin I < 0.03 (< 0.04) ng/mL Serum Total Protein 7.8 (6.4-8.9) g/dL Albumin 4.8 (3.5-5.7) g/dL Globulin 3.0 (2.4-3.5) g/dL Albumin/Globulin Ratio 1.6 (1.1-2.2)
[2019-02-22] MEDS ORDERED: Azithromycin 500 MG in D5% in Water 250 ML IVPB ONE (16:19)
[2019-02-22] MEDS ORDERED: cefTRIAXone 1,000 MG in Water for inj. (sterile) 10 ML IVP ONE (16:19)
[2019-02-22] MEDS ORDERED: Ondansetron 4 MG/2 ML VIAL IVP STA (16:42)
[2019-02-22 16:45] LABS: Basophils % 0.3 %; Eosinophils # 0.2 K/mcL (0.0-0.6); Eosinophils % 1.6 %; Hematocrit 38.7 % (37.5-50.1); Hemoglobin 12.7 g/dL (12.9-16.9); Immature Granulocytes % 0.6 % (0-4); Lymphocytes # 0.8 K/mcL (0.6-4.6); Lymphocytes % 8.2 %; Mean Corpuscular HGB Conc 32.8 g/dL (31.6-35.5); Mean Corpuscular Hemoglobin 29.1 pg (28.0-33.3); Mean Corpuscular Volume 88.6 fL (83.0-100.0); Mean Platelet Volume 12.5 fL (9.4-12.4); Monocytes # 0.4 K/mcL (0.0-1.3); Neutrophils # 8.4 K/mcL (1.6-8.9); Platelet Count 178 K/mcL (140-400); Red Blood Count 4.37 M/mcL (4.19-5.50); Red Cell Distribution Width 14.3 % (11.5-14.5); Segmented Neutrophils % 85.3 %; White Blood Count 9.9 K/mcL (4.3-11.1)
--- NOTE | 2019-02-22 16:51 | Emergency Department Note ---
Disposition Clinical Impression: Lung mass, Acute kidney injury Pneumonia Qualifiers: Pneumonia type: due to unspecified organism Laterality: unspecified laterality Lung location: unspecified part of lung Qualified Code(s): J18.9 - Pneumonia, unspecified organism Sepsis Qualifiers: Sepsis type: sepsis due to unspecified organism Qualified Code(s): A41.9 - Sepsis, unspecified organism Disposition: Admitted As Inpatient Condition: Fair Time of Disposition: 21:00 General Adult HPI - General Chief complaint: ED Upper Respiratory Infection Stated complaint: congestion, runny nose, cough Time Seen by Provider: 02/22/19 15:55 Source: patient, family Mode of arrival: private vehicle Limitations: no limitations - History of Present Illness Pain Scale: 9 - Related Data Home Medications Medication Instructions Recorded Confirmed Insulin ASPART [Novolog Flexpen] 25 unit SQ TIDAC 09/02/15 02/22/19 Metformin HCl [Glucophage] 1,000 mg PO BID 09/02/15 02/22/19 Aspirin Enteric Coated [Aspirin EC] 81 mg PO DAILY 03/23/17 02/22/19 Clopidogrel [Plavix] 75 mg PO DAILY 03/23/17 02/22/19 Fluticasone Propionate Nasal 50 mcg NS DAILY PRN 03/23/17 02/22/19 [Flonase] Rosuvastatin [Crestor] 20 mg PO HS 03/23/17 02/22/19 Allopurinol [Zyloprim 300 MG] 300 mg PO DAILY 02/22/19 02/22/19 Chlorthalidone 50 mg PO DAILY 02/22/19 02/22/19 Gabapentin 800 mg PO TID 02/22/19 02/22/19 Insulin Glargine,Hum.rec.anlog 80 unit SQ 02/22/19 02/22/19 [Basaglar Kwikpen U-100] Lisinopril [Zestril] 40 mg PO DAILY 02/22/19 02/22/19 Pioglitazone [Actos] 45 mg PO DAILY 02/22/19 02/22/19 Plecanatide [Trulance] 3 mg PO DAILY 02/22/19 02/22/19 Spironolactone [Aldactone] 50 mg PO DAILY 02/22/19 02/22/19 Allergies Allergy/AdvReac Type Severity Reaction Status Date / Time No Known Allergies Allergy Verified 10/09/18 10:02 Constitutional: Reports: fever, chills Eyes: Reports: eye pain ("burning" ) ENT ED: Reports: congestion Cardiovascular: Reports: dyspnea on exertion, orthopnea, other (Patient denies chest pain but reports feeling "congested" throughout his chest) Respiratory: Reports: cough, dyspnea, wheezes, sputum production. Denies: hemoptysis Gastrointestinal: Reports: abdominal pain, nausea. Denies: diarrhea, hematemesis, hematochezia Genitourinary: Reports: dysuria. Denies: hematuria, discharge Musculoskeletal: Reports: arthralgia, myalgia Integumentary: Reports: abrasion (healing abraisons noted to left forearm and left lower rodriguez ). Denies: rash Neurological: Reports: headache. Denies: confusion Endocrine: Reports: fatigue Past Medical History - Past Medical History Medical history: Reports: COPD, coronary artery disease, diabetes, GERD, hyperlipidemia, hypertension, myocardial infarction Surgical history: Reports: angioplasty/stent, herniorrhaphy Psychiatric history: Reports: no psych history - Social History Smoking Status: Never smoker Smokeless Tobacco Status: No Alcohol use: Reports: none Drug use: Reports: none Physical Exam - General Limitations: no limitations General appearance: alert, anxious (mildly anxious; reclining in an upright position in bed) Course Vital Signs Temperature 102.6 F H 02/22/19 15:40 Pulse Rate 122 02/22/19 15:40 Respiratory Rate 20 02/22/19 15:40 Blood Pressure 156/84 02/22/19 15:40 O2 Sat by Pulse Oximetry 94 02/22/19 15:40 Temperature 97.6 F 02/23/19 11:35 Pulse Rate 88 02/23/19 11:35 Respiratory Rate 14 02/23/19 11:35 Blood Pressure 108/62 02/23/19 11:35 O2 Sat by Pulse Oximetry 93 02/23/19 11:35 Oxygen Delivery Oxygen Delivery Nasal Cannula Medical Decision Making - Lab Data Result diagrams: 02/23/19 04:44 02/23/19 04:44 Lab Results 02/22/19 02/22/19 02/22/19 Range/Units 16:06 16:06 16:06 WBC 9.9 (4.3-11.1) K/mcL RBC 4.37 (4.19-5.50) M/mcL Hgb 12.7 L (12.9-16.9) g/dL Hct 38.7 (37.5-50.1) % MCV 88.6 (83.0-100.0) fL MCH 29.1 (28.0-33.3) pg MCHC 32.8 (31.6-35.5) g/dL RDW 14.3 (11.5-14.5) % Plt Count 178 (140-400) K/mcL MPV 12.5 H (9.4-12.4) fL Immature Gran % 0.6 (0-4) % Seg Neutrophils % 85.3 % Lymphocytes % 8.2 % Monocytes % 4.0 % Eosinophils % 1.6 % Basophils % 0.3 % Neutrophils # 8.4 (1.6-8.9) K/mcL Lymphocytes # 0.8 (0.6-4.6) K/mcL Monocytes # 0.4 (0.0-1.3) K/mcL Eosinophils # 0.2 (0.0-0.6) K/mcL Basophils # 0.0 (0.0-0.2) K/mcL Sodium 137 (136-145) mEq/L Potassium 3.9 (3.5-5.1) mEq/L Chloride 99 (98-107) mEq/L Carbon Dioxide 26 (23-29) mEq/L BUN 20 (8-23) mg/dL Creatinine 1.35 H (0.70-1.30) mg/dL Est GFR ( Amer) > 60 (> 60) Est GFR (Non-Af Amer) 53 L (> 60) BUN/Creatinine Ratio 15 (6-26) Glucose 155 H (70-105) mg/dL POC Glucose (70-99) mg/dL Calculated Osmolality 290 (280-300) Lactic Acid 1.9 (0.5-2.2) mmol/L Calcium 10.0 (8.6-10.3) mg/dL Phosphorus 1.5 L (2.7-4.5) mg/dL Magnesium 1.0 L (1.6-2.6) mg/dL Total Bilirubin 0.4 (0.3-1.0) mg/dL Direct Bilirubin 0.1 (0.0-0.2) mg/dL Indirect Bilirubin 0.3 (0.0-1.2) mg/dL AST 18 (13-39) Units/L ALT 16 (7-52) Units/L Alkaline Phosphatase 52 (34-104) Units/L Troponin I < 0.03 (< 0.04) ng/mL Serum Total Protein 7.8 (6.4-8.9) g/dL Albumin 4.8 (3.5-5.7) g/dL Globulin 3.0 (2.4-3.5) g/dL Albumin/Globulin Ratio 1.6 (1.1-2.2) 02/22/19 Range/Units 23:05 WBC (4.3-11.1) K/mcL RBC (4.19-5.50) M/mcL Hgb (12.9-16.9) g/dL Hct (37.5-50.1) % MCV (83.0-100.0) fL MCH (28.0-33.3) pg MCHC (31.6-35.5) g/dL RDW (11.5-14.5) % Plt Count (140-400) K/mcL MPV (9.4-12.4) fL Immature Gran % (0-4) % Seg Neutrophils % % Lymphocytes % % Monocytes % % Eosinophils % % Basophils % % Neutrophils # (1.6-8.9) K/mcL Lymphocytes # (0.6-4.6) K/mcL Monocytes # (0.0-1.3) K/mcL Eosinophils # (0.0-0.6) K/mcL Basophils # (0.0-0.2) K/mcL Sodium (136-145) mEq/L Potassium (3.5-5.1) mEq/L Chloride (98-107) mEq/L Carbon Dioxide (23-29) mEq/L BUN (8-23) mg/dL Creatinine (0.70-1.30) mg/dL Est GFR ( Amer) (> 60) Est GFR (Non-Af Amer) (> 60) BUN/Creatinine Ratio (6-26) Glucose (70-105) mg/dL POC Glucose 317 H (70-99) mg/dL Calculated Osmolality (280-300) Lactic Acid (0.5-2.2) mmol/L Calcium (8.6-10.3) mg/dL Phosphorus (2.7-4.5) mg/dL Magnesium (1.6-2.6) mg/dL Total Bilirubin (0.3-1.0) mg/dL Direct Bilirubin (0.0-0.2) mg/dL Indirect Bilirubin (0.0-1.2) mg/dL AST (13-39) Units/L ALT (7-52) Units/L Alkaline Phosphatase (34-104) Units/L Troponin I (< 0.04) ng/mL Serum Total Protein (6.4-8.9) g/dL Albumin (3.5-5.7) g/dL Globulin (2.4-3.5) g/dL Albumin/Globulin Ratio (1.1-2.2) Attestation Statement - Attestation Attestation: I examined this patient and my medical decision-making was reviewed with the Resident Physician. I agree with the documented findings, disposition and treatment plan as described except to the extent set forth below. Ill appearing but nontoxic male with 3 days of generalized illness and fever, complaining of abdominal pain, chest pain, shortness of breath, cough, headache and generalized myalgias. Meets Sirs criteria with a suspected infection, sepsis protocols initiated. IV fluids initiated by Dr. Omer as part of his initial evaluation and treatment. I was present for the residency EKG interpretation. Procedure, emergency point care ultrasound for volume assessment: Procedure performed by me. Images obtained and interpreted by me, archived in PACS. The intrahepatic IVC was well visualized and measured at approximately 1.9 cm with near-complete collapse with inspiration. While the diameter is slightly above- average, the complete collapse of inspiration is consistent with intravascular volume depletion and a CVP less than 8. This exam was done after administration of about 650 mL of saline. Initial chest x-ray negative. Patient was having intermittent bouts of confusion and statements that did not make sense while in the ED that generated some concern. More of a workup was done to look for a source before potentially moving forward with lumbar puncture. CT of the chest revealed a lingular infiltrate that was not visible on chest x-ray, likely due to his volume depletion. It also revealed a 2.2 cm masses suspicious for primary lung malignancy, especially concerning given his smoking history. The patient and his are notified of this, with emphasis on the fact that the diagnosis of cancer was not made, but that we are suspicious given the clinical picture. He is septic with pneumonia and will be admitted to the hospital. Pulmonology consult will be obtained to assist with management and to evaluate the mass.
[2019-02-22] MEDS ORDERED: Ipratropium/Albuterol Neb 3 ML IH ONE (16:59)
[2019-02-22 17:22] LABS: Alanine Aminotransferase 16 Units/L (7-52); Albumin 4.8 g/dL (3.5-5.7); Albumin/Globulin Ratio 1.6 (1.1-2.2); Alkaline Phosphatase 52 Units/L (34-104); Aspartate Amino Transferase 18 Units/L (13-39); BUN/Creatinine Ratio 15 (6-26); Bilirubin,Direct 0.1 mg/dL (0.0-0.2); Bilirubin,Indirect 0.3 mg/dL (0.0-1.2); Bilirubin,Total 0.4 mg/dL (0.3-1.0); Blood Urea Nitrogen 20 mg/dL (8-23); Carbon Dioxide 26 mEq/L (23-29); Chloride 99 mEq/L (98-107); Glucose 155 mg/dL (70-105); Osmolality,Calculated 290 (280-300); Phosphorous 1.5 mg/dL (2.7-4.5); Potassium 3.9 mEq/L (3.5-5.1); Sodium 137 mEq/L (136-145); Total Protein 7.8 g/dL (6.4-8.9); Troponin I < 0.03 ng/mL (< 0.04); eGFR For African Americans > 60 (> 60); eGFR For Non-African Americans 53 (> 60)
--- NOTE | 2019-02-22 18:26 | Emergency Department Note ---
Disposition Clinical Impression: Lung mass, Acute kidney injury Pneumonia Qualifiers: Pneumonia type: due to unspecified organism Laterality: unspecified laterality Lung location: unspecified part of lung Qualified Code(s): J18.9 - Pneumonia, unspecified organism Sepsis Qualifiers: Sepsis type: sepsis due to unspecified organism Qualified Code(s): A41.9 - Sepsis, unspecified organism Disposition: Admitted As Inpatient Condition: Fair Time of Disposition: 19:35 General Adult HPI - General Chief complaint: ED Upper Respiratory Infection Stated complaint: congestion, runny nose, cough Time Seen by Provider: 02/22/19 15:55 Source: patient, family () Mode of arrival: private vehicle Limitations: no limitations Nursing Notes Reviewed: Yes Vital Signs Reviewed: Yes - History of Present Illness HPI Narrative: 63-year-old male former smoker, history of coronary arterial disease, hypertension, DM presents to the emergency department with fever cough congestion. Symptoms ongoing for the past 3 days. He reports productive cough with green yellow sputum. Denies any chest pain. He does endorse a slight headache that he typically has but is worse today. He is gradually gotten more sure breath with exertion and now at rest. He does not wear home oxygen. No history of COPD her asthma. Denies any leg swelling. He does endorse some abdominal discomfort around his known hernia but denies any nausea vomiting. No other sick contacts. No recent long-distance travel. No recent hospitalizations. Pain Scale: 6 - Related Data Home Medications Medication Instructions Recorded Confirmed Insulin ASPART [Novolog Flexpen] 25 unit SQ TIDAC 09/02/15 02/22/19 Metformin HCl [Glucophage] 1,000 mg PO BID 09/02/15 02/22/19 Aspirin Enteric Coated [Aspirin EC] 81 mg PO DAILY 03/23/17 02/22/19 Clopidogrel [Plavix] 75 mg PO DAILY 03/23/17 02/22/19 Fluticasone Propionate Nasal 50 mcg NS DAILY PRN 03/23/17 02/22/19 [Flonase] Rosuvastatin [Crestor] 20 mg PO HS 03/23/17 02/22/19 Allopurinol [Zyloprim 300 MG] 300 mg PO DAILY 02/22/19 02/22/19 Chlorthalidone 50 mg PO DAILY 02/22/19 02/22/19 Gabapentin 800 mg PO TID 02/22/19 02/22/19 Insulin Glargine,Hum.rec.anlog 80 unit SQ HS 02/22/19 02/22/19 [Basaglar Juan Carlosikpen U-100] Lisinopril [Zestril] 40 mg PO DAILY 02/22/19 02/22/19 Pioglitazone [Actos] 45 mg PO DAILY 02/22/19 02/22/19 Plecanatide [Trulance] 3 mg PO DAILY 02/22/19 02/22/19 Spironolactone [Aldactone] 50 mg PO DAILY 02/22/19 02/22/19 Allergies Allergy/AdvReac Type Severity Reaction Status Date / Time No Known Allergies Allergy Verified 10/09/18 10:02 All systems ED: reviewed and negative except as stated. Review of Systems: As Per HPI Constitutional: Reports: fever, chills Eyes: Reports: eye pain ("burning" ) ENT ED: Reports: congestion Cardiovascular: Reports: dyspnea on exertion, orthopnea, other (Patient denies chest pain but reports feeling "congested" throughout his chest) Respiratory: Reports: cough, dyspnea, wheezes, sputum production. Denies: hemoptysis Gastrointestinal: Reports: abdominal pain, nausea. Denies: diarrhea, hematemesis, hematochezia Genitourinary: Reports: dysuria. Denies: hematuria, discharge Musculoskeletal: Reports: arthralgia, myalgia Integumentary: Reports: abrasion (healing abraisons noted to left forearm and left lower rodriguez ). Denies: rash Neurological: Reports: headache. Denies: confusion Endocrine: Reports: fatigue Past Medical History - Past Medical History Attestation: Yes The following information was validated with the patient. Source: patient Medical history: Reports: COPD, coronary artery disease, diabetes, GERD, hyperlipidemia, hypertension, myocardial infarction Surgical history: Reports: angioplasty/stent, herniorrhaphy Psychiatric history: Reports: no psych history - Social History Smoking Status: Never smoker Smokeless Tobacco Status: No Alcohol use: Reports: none Drug use: Reports: none Physical Exam - General Limitations: no limitations General appearance: alert, anxious (mildly anxious; reclining in an upright position in bed), other (Diaphoretic) - Head Head exam: atraumatic, normocephalic, normal inspection - Eye Eye exam: Present: normal appearance, PERRL, EOMI, conjunctival injection. Absent: nystagmus - ENT ENT exam: normal exam, normal oropharynx, mucous membranes moist - Neck Neck exam: Present: normal inspection, full ROM, trachea midline - Chest Chest inspection: Present: normal inspection, symmetric chest wall rise - Respiratory Respiratory exam: Present: respiratory distress (Mild), wheezes, other (biba silar crackles, L > R) - Cardiovascular Cardiovascular exam: Present: normal rhythm, tachycardia, normal heart sounds - Abdominal Exam Abdominal exam: Present: soft, Non-Tender, normal bowel sounds, hernia (reducible). Absent: tenderness, distention, guarding, rebound, rigidity - Extremities Exam Extremities exam: Present: normal inspection, full ROM. Absent: tenderness, pedal edema - Back Exam Back exam: Present: normal inspection, full ROM. Absent: tenderness - Neurological Exam Neurological exam: Present: alert, oriented X3 - Psychiatric Psychiatric exam: Present: normal affect, normal mood - Skin Skin exam: Present: warm, dry, intact, normal color, diaphoresis. Absent: rash, cyanosis Course Course Narrative: Patient presents with fever cough congestion and shortness of breath for past several days. He meets SIRS criteria and SEPSIS alert was initiated. Suspected source pulmonary. Will start off with 1 L normal saline bolus as his blood pressure is stable and he reports a history of possible heart failure. Will initiate with empiric antibiotics of azithromycin and ceftriaxone. Patient will likely require admission. - Reevaluation(s) Reevaluation #1: Initial chest x-ray did not reveal obvious signs of pneumonia. Clinically he does appear to be pneumonia. Upon further questioning the states he appears to be hallucinating. He has been saying things which seem to be odd such as if she brought the house found to the hospital or where the car is so we can go home. Given the presumed negative chest x-ray there is concern for other etiology. His lactate is 1.9. His WBC appears normal without leukocytos is. He has a mild elevation of his creatinine. His magnesium was noted to be low and will replete here with IV. He otherwise does appear ill and will consider other sources and will plan for CT head chest and abdomen pelvis. If there is not a clear source of infection will consider lumbar puncture for possible meningitis given his new symptoms. Also check for influenza, this does appear consistent with his presentation but would be odd given the time of the year. He continues to be febrile after Tylenol and will be given ibuprofen in addition for antipyretic's. His blood pressure has downtrending and will give additional 2nd liter normal saline bolus. Reevaluation #2: CT scan showed lingular pneumonia. This is consistent with his presentation. There is also incidental finding of a 2 points to centimeter right lung mass. He is a former smoker and reported history of family cancer. He is at high risk in the suspicion is therefore cancer but cannot be diagnosed here. He will require further evaluation all he is hospitalized for his pneumonia. Patients otherwise stable and will be admitted to the hospital service. and patient are agreeable to this plan. - Consultations Consultation #1: Spoke with on-call hospitalist shorty Evans to admit for sepsis secondary to pneumonia. No further orders at this time Time: 19:34 Vital Signs Temperature 102.6 F H 02/22/19 15:40 Pulse Rate 122 02/22/19 15:40 Respiratory Rate 20 02/22/19 15:40 Blood Pressure 156/84 02/22/19 15:40 O2 Sat by Pulse Oximetry 94 02/22/19 15:40 Temperature 101.4 F H 02/23/19 00:00 Pulse Rate 122 02/22/19 23:13 Respiratory Rate 22 02/22/19 23:13 Blood Pressure 134/66 02/22/19 23:13 O2 Sat by Pulse Oximetry 95 02/22/19 23:13 Oxygen Delivery Oxygen Delivery Nasal Cannula Medical Decision Making - MDM Narrative Medical decision making narrative: Patient was discussed with my attending physician who agrees with ED management and final disposition. They independently evaluated the patient. Please refer to their attestation to this encounter for additional information. This note was generated by [employer] voice recognition software and as a result grammatical or spelling errors may occur using this program. - Medical Records Medical records reviewed: Yes I reviewed the patient's medical records. - Lab Data Lab results reviewed: Yes I reviewed the patient's lab results. Result diagrams: 02/22/19 16:06 02/22/19 16:06 Lab Results 02/22/19 02/22/19 02/22/19 Range/Units 16:06 16:06 16:06 WBC 9.9 (4.3-11.1) K/mcL RBC 4.37 (4.19-5.50) M/mcL Hgb 12.7 L (12.9-16.9) g/dL Hct 38.7 (37.5-50.1) % MCV 88.6 (83.0-100.0) fL MCH 29.1 (28.0-33.3) pg MCHC 32.8 (31.6-35.5) g/dL RDW 14.3 (11.5-14.5) % Plt Count 178 (140-400) K/mcL MPV 12.5 H (9.4-12.4) fL Immature Gran % 0.6 (0-4) % Seg Neutrophils % 85.3 % Lymphocytes % 8.2 % Monocytes % 4.0 % Eosinophils % 1.6 % Basophils % 0.3 % Neutrophils # 8.4 (1.6-8.9) K/mcL Lymphocytes # 0.8 (0.6-4.6) K/mcL Monocytes # 0.4 (0.0-1.3) K/mcL Eosinophils # 0.2 (0.0-0.6) K/mcL Basophils # 0.0 (0.0-0.2) K/mcL Sodium 137 (136-145) mEq/L Potassium 3.9 (3.5-5.1) mEq/L Chloride 99 (98-107) mEq/L Carbon Dioxide 26 (23-29) mEq/L BUN 20 (8-23) mg/dL Creatinine 1.35 H (0.70-1.30) mg/dL Est GFR ( Amer) > 60 (> 60) Est GFR (Non-Af Amer) 53 L (> 60) BUN/Creatinine Ratio 15 (6-26) Glucose 155 H (70-105) mg/dL Calculated Osmolality 290 (280-300) Lactic Acid 1.9 (0.5-2.2) mmol/L Calcium 10.0 (8.6-10.3) mg/dL Phosphorus 1.5 L (2.7-4.5) mg/dL Magnesium 1.0 L (1.6-2.6) mg/dL Total Bilirubin 0.4 (0.3-1.0) mg/dL Direct Bilirubin 0.1 (0.0-0.2) mg/dL Indirect Bilirubin 0.3 (0.0-1.2) mg/dL AST 18 (13-39) Units/L ALT 16 (7-52) Units/L Alkaline Phosphatase 52 (34-104) Units/L Troponin I < 0.03 (< 0.04) ng/mL Serum Total Protein 7.8 (6.4-8.9) g/dL Albumin 4.8 (3.5-5.7) g/dL Globulin 3.0 (2.4-3.5) g/dL Albumin/Globulin Ratio 1.6 (1.1-2.2) - Radiology Data Radiology results reviewed: Yes I reviewed the patient's radiology results. Chest X-Ray 02/22/19 16:01 IMPRESSION: Mild perihilar vascular prominence without overt failure. COPD. D/ / 02/22/2019 16:38:24 Liza Berrios MD / henrry Interpreting Provider: Liza Berrios MD Abdomen/Pelvis CT 02/22/19 17:47 IMPRESSION: 1. Lingular pneumonia 2. 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 No findings of thoracic or abdominopelvic metastatic disease 3. Calcific coronary atherosclerosis 4. Colonic diverticulosis D/ / Refugio Hernandez MD / Refugio Hernandez MD Interpreting Provider: Refugio Hernandez MD Chest CT 02/22/19 17:47 IMPRESSION: 1. Lingular pneumonia 2. 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 No findings of thoracic or abdominopelvic metastatic disease 3. Calcific coronary atherosclerosis 4. Colonic diverticulosis D/ / Refugio Hrenandez MD / Refugio Hernandez MD Interpreting Provider: Refugio Hernandez MD Head CT 02/22/19 17:47 IMPRESSION: No acute intracranial abnormality. D/ / Amber Watt Cha, MD / Amber Watt Cha, MD Interpreting Provider: Amber Watt Cha, MD - EKG Data EKG #1 EKG attestation: Yes I reviewed and interpreted this EKG. EKG results narrative: EKG performed 1557 reveals sinus rhythm with prolonged [place] interval 1 18 bpm with axis deviation, no ST elevation or depression, good R wave progression. Compared to prior EKG performed 03/13/2017 shows more of sinus rhythm with first- degree AV block [place] interval 291. Otherwise findings appear consistent. No acute ischemic changes.
[2019-02-22] MEDS ORDERED: Ibuprofen 600 MG TABLET PO ONE (18:36)
[2019-02-22] MEDS ORDERED: 0.9 % Sodium Chloride 1,000 ML ONE (19:05)
[2019-02-22] MEDS ORDERED: Fluticasone Propionate Nasal 50 MCG/SPRAY BOTTLE NS PRN (19:45)
[2019-02-22] MEDS ORDERED: GuaiFENesin/Codeine Oral Soln 5 ML UDC PO PRN (20:16)
[2019-02-22] MEDS ORDERED: *HR* Dextrose 50 % in Water (Syg) 50 ML SYRINGE IVP PRN (20:18)
[2019-02-22] MEDS ORDERED: *HR* OxyCODONE Immed Rel 5 MG TABLET PO PRN (20:18)
[2019-02-22] MEDS ORDERED: Naloxone 0.4 MG/ML INJ IVP PRN (20:18)
[2019-02-22] MEDS ORDERED: Dextrose Gel 15 GM/37.5 ML TUBE PO PRN ×2 (20:18)
[2019-02-22] MEDS ORDERED: Potassium Phosphate 44 MEQ in 0.9 % Sodium Chloride 250 ML IVPB ONE (20:20)
--- NOTE | 2019-02-22 20:39 | Internal Med History&Physical ---
Date of Encounter: 02/22/19 Time of Encounter: 20:37 Internal Medicine - H&P: HPI Chief complaint: cough Admitted From: Home Plans for Post Hospital Care: Home History of present illness: Pancho Schofield is a 63-year-old man with hypertension, diabetes and coronary artery disease presents to the emergency room complaining of 3 days of fever, headaches, nonspecific chest pain and cough. He complains of generalized malaise and myalgias that has made it difficult for him to perform his activities of daily living. His appetite has been poor. He denies any sick contacts. In the ER he was found febrile and tachycardic with a downward trend in his blood pressure. Lab work revealed creatinine of 1.35 which is above his baseline and chest CT revealed lingular consolidation as well as a 2.2 cm spiculated mass in the right upper lobe. He was started on fluids and empiric antibiotics, admitted for further care. At the time of my assessment he reports that his headache feels better than it was before but continues to have a bothersome cough. Vitals: Reviewed General: Obese white man lying in bed in no acute distress. Skin: Warm, flushed. Traumatic lesion on left forearm that is healing. HEENT: Moist mucous membranes. No conjunctivae pallor. Neck: No lymphadenopathy. No JVD. No carotid bruits. No palpable thyroid. Chest: Normal thoracic expansion. No wheezes or rhonchi. Slight rales in the left base. Heart: Normal S1 & S2; rhythmic. No rubs or murmurs. Abdomen: Protuberant, soft and non-tender to palpation. No peritoneal reaction. Umbilical hernia present. Extremities: No clubbing, cyanosis or edema. No calf tenderness. Normal distal pulses. Neurological: Awake, alert and oriented to person, place and time. No focal deficits. Psych: Affect appropriate. Assessment/Plan 1. Sepsis due to community acquired pneumonia: Will continue IVF resuscitation and ceftriaxone/azithromycin. Urine antigens ordered and blood cultures obtained. Anti-tussive and antipyretic agents ordered as needed. 2. Acute kidney injury: Stage 1. Likely from volume depletion and septic state. Should improve with fluids. Will recheck serum Cr in the morning. 3. Electrolyte imbalance: As evidenced by hypomagnesemia and hypophosphatemia. IV supplementation started. Will monitor on telemetry. 4. Diabetes: Poorly controlled with last A1C of 9.8% at last check. Will place on diabetic diet and insulin sliding scale. 5. Coronary artery disease: Clinically asymptomatic at this time. Continue DAPT. 6. Hypertension: His diuretics will be on hold for now as he needs volume however ACEI will be continued. Past Med Surg Social Fam HX - Past Medical History Medical history: COPD, coronary artery disease, diabetes, GERD, hyperlipidemia, hypertension, myocardial infarction Additional medical history: cardiac stents x4, lumbar DDD, sleep apnea, gout Psychiatric history: no psych history - Past Surgical History Surgical History: angioplasty/stent, herniorrhaphy Additional surgical history: right elbow, right knee, BCCA removal on face, rt rotaor cuff repair, egd/colon, ankle, foot - Social History Smoking Status: Never smoker Smokeless Tobacco Status: No Alcohol use: none Drug use: none - Family History Father Living Status: Hx Family Cardiac Disorders: Yes Hx Family Neurologic Disorders: Yes Internal Medicine - H&P: Meds Insulin ASPART [Novolog Flexpen] 25 unit SQ TIDAC 09/02/15 [History] Metformin HCl [Glucophage] 1,000 mg PO BID 09/02/15 [History] Aspirin Enteric Coated [Aspirin EC] 81 mg PO DAILY 03/23/17 [History] Clopidogrel [Plavix] 75 mg PO DAILY 03/23/17 [History] Fluticasone Propionate Nasal [Flonase] 50 mcg NS DAILY PRN 03/23/17 [History] Rosuvastatin [Crestor] 20 mg PO HS 03/23/17 [History] Allopurinol [Zyloprim 300 MG] 300 mg PO DAILY 02/22/19 [History] Chlorthalidone 50 mg PO DAILY 02/22/19 [History] Gabapentin 800 mg PO TID 02/22/19 [History] Insulin Glargine,Hum.rec.anlog [Basaglar Kwikpen U-100] 80 unit SQ HS 02/22/19 [History] Lisinopril [Zestril] 40 mg PO DAILY 02/22/19 [History] Pioglitazone [Actos] 45 mg PO DAILY 02/22/19 [History] Plecanatide [Trulance] 3 mg PO DAILY 02/22/19 [History] Spironolactone [Aldactone] 50 mg PO DAILY 02/22/19 [History] Allergy/AdvReac Type Severity Reaction Status Date / Time No Known Allergies Allergy Verified 10/09/18 10:02 All Systems PM: A 10-system review of systems was performed and is negative for pertinent findings except as documented above in the HPI. - Constitutional Vitals: Temp Pulse Resp BP Pulse Ox 103 F H 126 20 110/57 100 02/22/19 18:32 02/22/19 20:24 02/22/19 20:24 02/22/19 20:24 02/22/19 20:24 Exam: . Internal Med - H&P Results - Labs CBC & Chem 7: 02/22/19 16:06 02/22/19 16:06 Labs: Short CBC 02/22/19 Range/Units 16:06 WBC 9.9 (4.3-11.1) K/mcL Hgb 12.7 L (12.9-16.9) g/dL Hct 38.7 (37.5-50.1) % Plt Count 178 (140-400) K/mcL Neutrophils # 8.4 (1.6-8.9) K/mcL BMP 02/22/19 16:06 Sodium 137 Potassium 3.9 Chloride 99 Carbon Dioxide 26 BUN 20 Creatinine 1.35 H Glucose 155 H Calcium 10.0 Cardiac Enzymes 02/22/19 Range/Units 16:06 Troponin I < 0.03 (< 0.04) ng/mL Liver Function 02/22/19 Range/Units 16:06 Total Bilirubin 0.4 (0.3-1.0) mg/dL Direct Bilirubin 0.1 (0.0-0.2) mg/dL AST 18 (13-39) Units/L ALT 16 (7-52) Units/L Alkaline Phosphatase 52 (34-104) Units/L Albumin 4.8 (3.5-5.7) g/dL - Impressions ITS Impressions Chest X-Ray 02/22/19 16:01 IMPRESSION: Mild perihilar vascular prominence without overt failure. COPD. D/ / 02/22/2019 16:38:24 Liza Berrios MD / henrry Interpreting Provider: Liza Berrios MD Abdomen/Pelvis CT 02/22/19 17:47 IMPRESSION: 1. Lingular pneumonia 2. 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 No findings of thoracic or abdominopelvic metastatic disease 3. Calcific coronary atherosclerosis 4. Colonic diverticulosis D/ / Refugio Hernandez MD / Refugio Hernandez MD Interpreting Provider: Refugio Hernandez MD Chest CT 02/22/19 17:47 IMPRESSION: 1. Lingular pneumonia 2. 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 No findings of thoracic or abdominopelvic metastatic disease 3. Calcific coronary atherosclerosis 4. Colonic diverticulosis D/ / Refugio Hernandez MD / Refugio Hernandez MD Interpreting Provider: Refugio Hernandez MD Head CT 02/22/19 17:47 IMPRESSION: No acute intracranial abnormality. D/ / Amber Watt Cha, MD / Amber Watt Cha, MD Interpreting Provider: Amber Watt Cha, MD - Time Spent With Patient Total time spent is greater than 50% in coordination of care (as documented) at patient's floor/unit and/or counseling patient: Greater than 35 minutes
[2019-02-22] MEDS ORDERED: GuaiFENesin/Codeine Oral Soln 5 ML UDC PO ONE (21:00)
[2019-02-22] MEDS: Gabapentin 400 MG CAPSULE PO SCH (23:06)
[2019-02-22] MEDS: Acetaminophen 325 MG TABLET PO PRN (23:07)
[2019-02-22] MEDS: Ringers Solution, Lactated 1,000 ML IVC SCH (23:08)
[2019-02-22] MEDS: Insulin LISPRO 300 UNITS/3 ML VIAL SQ SCH (23:16)
[2019-02-22] MEDS: Ibuprofen 600 MG TABLET PO PRN (23:58)
[2019-02-23] MEDS: traMADol 50 MG TABLET PO PRN ×2 (02:56→10:25)
[2019-02-23 05:04] LABS: Basophils % 0.2 %; Eosinophils % 0.1 %; Hematocrit 31.1 % (37.5-50.1); Immature Granulocytes % 1.8 % (0-4); Lymphocytes # 1.5 K/mcL (0.6-4.6); Lymphocytes % 9.8 %; Mean Corpuscular HGB Conc 32.2 g/dL (31.6-35.5); Mean Corpuscular Hemoglobin 29.4 pg (28.0-33.3); Mean Corpuscular Volume 91.5 fL (83.0-100.0); Mean Platelet Volume 11.8 fL (9.4-12.4); Monocytes % 6.9 %; Neutrophils # 12.2 K/mcL (1.6-8.9); Platelet Count 139 K/mcL (140-400); Red Cell Distribution Width 14.5 % (11.5-14.5); Segmented Neutrophils % 81.2 %
[2019-02-23 05:10] LABS: INR 1.3; Prothrombin Time 14.2 Seconds (9.4-12.1)
[2019-02-23 05:13] LABS: Activated Partial Thrombo Time 34.8 Seconds (26.0-36.0)
[2019-02-23] MEDS: Ringers Solution, Lactated 1,000 ML IVC SCH (05:14)
[2019-02-23] MEDS: *HR* Heparin 5,000 UNIT/ML VIAL SQ SCH ×2 (05:15→17:08)
[2019-02-23 05:27] LABS: Calcium 8.6 mg/dL (8.6-10.3); Magnesium 1.1 mg/dL (1.6-2.6); Phosphorous 3.8 mg/dL (2.7-4.5); Potassium 4.8 mEq/L (3.5-5.1)
[2019-02-23 06:01] LABS: Platelet Estimate Normal (Normal)
--- NOTE | 2019-02-23 08:08 | Pulmonology Consult Note ---
<Wild Carey M - Last Filed: 02/23/19 15:50> Date of Encounter: 02/23/19 Medications and Allergies Insulin ASPART [Novolog Flexpen] 25 unit SQ TIDAC 09/02/15 [History] Metformin HCl [Glucophage] 1,000 mg PO BID 09/02/15 [History] Aspirin Enteric Coated [Aspirin EC] 81 mg PO DAILY 03/23/17 [History] Clopidogrel [Plavix] 75 mg PO DAILY 03/23/17 [History] Fluticasone Propionate Nasal [Flonase] 50 mcg NS DAILY PRN 03/23/17 [History] Rosuvastatin [Crestor] 20 mg PO HS 03/23/17 [History] Allopurinol [Zyloprim 300 MG] 300 mg PO DAILY 02/22/19 [History] Chlorthalidone 50 mg PO DAILY 02/22/19 [History] Gabapentin 800 mg PO TID 02/22/19 [History] Insulin Glargine,Hum.rec.anlog [Basaglar Kwikpen U-100] 80 unit SQ HS 02/22/19 [History] Lisinopril [Zestril] 40 mg PO DAILY 02/22/19 [History] Pioglitazone [Actos] 45 mg PO DAILY 02/22/19 [History] Plecanatide [Trulance] 3 mg PO DAILY 02/22/19 [History] Spironolactone [Aldactone] 50 mg PO DAILY 02/22/19 [History] Allergy/AdvReac Type Severity Reaction Status Date / Time No Known Allergies Allergy Verified 10/09/18 10:02 All Systems: The remainder of the systems were reviewed and are negative Results - Laboratory Findings CBC and BMP: 02/23/19 13:36 02/23/19 04:44 PT/INR, D-dimer PT 14.2 Seconds (9.4-12.1) H 02/23/19 04:44 Abnormal lab findings: Abnormal lab results WBC 15.0 K/mcL (4.3-11.1) H D 02/23/19 04:44 RBC 3.40 M/mcL (4.19-5.50) L 02/23/19 04:44 Hgb 10.7 g/dL (12.9-16.9) L 02/23/19 13:36 Hct 33.8 % (37.5-50.1) L 02/23/19 13:36 Plt Count 139 K/mcL (140-400) L 02/23/19 04:44 MPV 12.5 fL (9.4-12.4) H 02/22/19 16:06 Neutrophils # 12.2 K/mcL (1.6-8.9) H 02/23/19 04:44 PT 14.2 Seconds (9.4-12.1) H 02/23/19 04:44 Sodium 133 mEq/L (136-145) L 02/23/19 04:44 Creatinine 1.47 mg/dL (0.70-1.30) H 02/23/19 04:44 Est GFR ( Amer) 59 (> 60) L 02/23/19 04:44 Est GFR (Non-Af Amer) 48 (> 60) L 02/23/19 04:44 Glucose 294 mg/dL (70-105) H 02/23/19 04:44 POC Glucose 326 mg/dL (70-99) H 02/23/19 11:32 Phosphorus 1.5 mg/dL (2.7-4.5) L 02/22/19 16:06 Magnesium 1.1 mg/dL (1.6-2.6) L 02/23/19 04:44 Creatine Kinase 314 Units/L (30-223) H 02/23/19 13:36 Urine Glucose (UA) >=1000 mg/dL (Normal) H 02/23/19 15:10 - Microbiology Findings Microbiology Findings: Microbiology, Last 48 Hours 02/23/19 05:13 Legionella Antigen - Final Urine,Clean Catch Streptococcus pneumoniae Antigen (M - Final 02/22/19 17:15 Influenza Types A,B Antigen - Final Nasopharyngeal 02/22/19 16:06 Blood Culture - Preliminary Peripheral Venipuncture Culture is incubating and being continuously monitored for growth. Final report to follow. 02/22/19 16:06 Blood Culture - Preliminary Peripheral Venipuncture Culture is incubating and being continuously monitored for growth. Final report to follow. - Clinical Findings Intake & Output: Intake & Output 02/22/19 02/23/19 02/23/19 23:59 07:59 15:59 Intake Total 1250 / 1250 1600 / 3090 1490 / 3090 Output Total 250 / 250 900 / 2200 1300 / 2200 Balance 1000 / 1000 700 / 890 190 / 890 Weight 111.7 kg 111.7 kg Consult Discharge Plan - Plan Referrals: Denisha Lozoya CNP [Primary Care Provider] - - Attending Attestation I examined this patient and my medical decision-making was reviewed with the Resident Physician. I agree with the documented findings, disposition and lida tment plan as described except to the extent set forth below. Patient seen and examined. Labs, radiology, chart personally reviewed. Agree with resident's history and physical, assessment, plan with following comments: [employer]: Patient follows commands, Pulmonary: Acceptable oxygenation and ventilation I have reviewed CT chest personally and result discussed with the patient. Patient stated that he knows that he has lung nodule in the right side and he was told that about 10 years ago. Patient is having symptoms suggestive of pneumonia and is being treated with broad-spectrum antibiotics. I have explained to the patient about bronchoscopy and biopsy and also CT-guided biopsy, however because of the acute illness and pneumonia we both felt this can be worked up as outpatient and to have PET scan first and that can be done about 1 month and then decide what option with her time biopsy her continue monitoring. He understand and agreed and he understand malignancies in the differential diagnosis. Cardiovascular: stable Thank you very much for consultation and please call for any questions. <Otf Barton - Last Filed: 02/23/19 17:11> Date of Encounter: 02/23/19 Time of Encounter: 09:30 Assessment and Plan (1) Lung mass Current Visit: Yes Status: Acute 2.2cm mass seen in right upper lobe on CT Pt does have hx of tobacco abuse Pt reports he was told approximately 10 years ago he had a lung mass on the right side. With acute pneumonia, recommend workup for lung mass including PET scan and CT guided biopsy vs bronchoscopy with biopsy as outpatient. (2) Pneumonia Current Visit: Yes Status: Acute Lingular pneumonia as seen on chest CT Received IV fluids Flu swab negative Urine strep and legionella antigens negative Pt unable to provide sputum sample with his dry cough Continue broad spectrum abx at this time, Azithromycin and Ceftriaxone. Qualifiers: Pneumonia type: due to unspecified organism Laterality: left Lung location: unspecified part of lung Qualified Code(s): J18.9 - Pneumonia, unspecified organism (3) COPD (chronic obstructive pulmonary disease) Current Visit: Yes Status: Chronic Not on home O2 Does not use any bronchodilators at home Consider adding if pt begins to wheeze Qualifiers: COPD type: emphysema Emphysema type: unspecified Qualified Code(s): J43.9 - Emphysema, unspecified (4) CECI (obstructive sleep apnea) Current Visit: Yes Status: Chronic (5) History of tobacco abuse Current Visit: Yes Status: Chronic Pt reports quitting tobacco approximately 2 years ago Reports prior to that he smoked for approximately 45 years with peak usage of 2ppd History of Present Illness Consult date: 02/23/19 Reason for consult: cough, COPD, abnormal CXR/CT Chief complaint: Fever and cough History of present illness: Mr Schofield is a 63M with PMH of HTN, diabetes, CAD s/p 4 PCIs, COPD, and GERD. He was admitted on 02/22/19 for complaints of fever, headaches, and cough of 3 days duration. In the ED he was noted to be febrile with temp of 102.6 and tachycardia. Labs revealed an elevated Cr of 1.35, low phos a5 1.5, and low mag of 1.0. CXR showed COPD with mild perihilar vascular prominence without overt failure. CT of the chest revealed lingular pneumonia, as well as a 2.2cm right upper lobe mass suspicious for malignancy. The pt was given IV fluids and started on empiric abx. Pulmonology was consulted for assessment of lung mass. Pt seen and examined at bedside. Reports he feels better than last night, but not 100%. Continues to complain of a dry cough, but states it has improved since he was admitted. Denies any sputum production or wheezing. No hemoptysis. Denies any recent illnesses. States he quit smoking approximately 2 years ago, but smoked for 45 years prior to that with his peak use of 2ppd. Past Med Surg Social Fam HX - Past Medical History Medical history: COPD, coronary artery disease, diabetes, GERD, hyperlipidemia, hypertension, myocardial infarction Additional medical history: cardiac stents x4, lumbar DDD, sleep apnea, gout Psychiatric history: no psych history - Past Surgical History Surgical History: herniorrhaphy Additional surgical history: right elbow, right knee, BCCA removal on face, rt rotaor cuff repair, egd/colon, ankle, foot - Social History Smoking Status: Former smoker Packs per day: 1 Smokeless Tobacco Status: Yes Alcohol use: none Drug use: none - Family History Father Living Status: Hx Family Cardiac Disorders: Yes Hx Family Neurologic Disorders: Yes All Systems: The remainder of the systems were reviewed and are negative - Constitutional Constitutional: chills, no fever(s) - Cardiovascular Cardiovascular: chest pain, dyspnea, no diaphoresis, no edema, no irregular heart rhythm, no palpitations, no pedal edema - Respiratory Respiratory: cough, dyspnea, no wheezing, no chest congestion, no excessive phlegm production, no change in phlegm color - Gastrointestinal Gastrointestinal: no diarrhea - Hematologic/Lymphatic Hematologic/Lymphatic: no easy bleeding, no easy bruising Physical Examination Vital Signs: Vital Signs, Last 4 Hours Temp Pulse Resp BP Pulse Ox 02/23/19 07:41 97.7 F 91 12 104/64 95 02/23/19 04:27 92 General appearance: no acute distress, alert Eyes: nonicteric ENT: oropharynx moist Neck: supple, no JVD Effort: normal Inspection: normal Auscultation: bilateral: diminished breath sounds Cardiovascular: regular rate and rhythm Gastrointestinal: soft, non-tender, other (mild distention ) Integumentary: normal Extremities: no cyanosis, no edema, no clubbing, pink and warm, pulses normal Musculoskeletal: no deformities Gait: normal posture normal mental status, non-focal exam, pupils equal and round mood appropriate, affect normal Results - Laboratory Findings CBC and BMP: 02/23/19 13:36 02/23/19 04:44 PT/INR, D-dimer PT 14.2 Seconds (9.4-12.1) H 02/23/19 04:44 Abnormal lab findings: Abnormal lab results WBC 15.0 K/mcL (4.3-11.1) H D 02/23/19 04:44 RBC 3.40 M/mcL (4.19-5.50) L 02/23/19 04:44 Hgb 10.0 g/dL (12.9-16.9) L D 02/23/19 04:44 Hct 31.1 % (37.5-50.1) L 02/23/19 04:44 Plt Count 139 K/mcL (140-400) L 02/23/19 04:44 MPV 12.5 fL (9.4-12.4) H 02/22/19 16:06 Neutrophils # 12.2 K/mcL (1.6-8.9) H 02/23/19 04:44 PT 14.2 Seconds (9.4-12.1) H 02/23/19 04:44 Sodium 133 mEq/L (136-145) L 02/23/19 04:44 Creatinine 1.47 mg/dL (0.70-1.30) H 02/23/19 04:44 Est GFR ( Amer) 59 (> 60) L 02/23/19 04:44 Est GFR (Non-Af Amer) 48 (> 60) L 02/23/19 04:44 Glucose 294 mg/dL (70-105) H 02/23/19 04:44 POC Glucose 317 mg/dL (70-99) H 02/22/19 23:05 Phosphorus 1.5 mg/dL (2.7-4.5) L 02/22/19 16:06 Magnesium 1.1 mg/dL (1.6-2.6) L 02/23/19 04:44 - Microbiology Findings Microbiology Findings: Microbiology, Last 48 Hours 02/23/19 05:13 Legionella Antigen - Final Urine,Clean Catch Streptococcus pneumoniae Antigen (M - Final 02/22/19 17:15 Influenza Types A,B Antigen - Final Nasopharyngeal 02/22/19 16:06 Blood Culture - Preliminary Peripheral Venipuncture Culture is incubating and being continuously monitored for growth. Final report to follow. 02/22/19 16:06 Blood Culture - Preliminary Peripheral Venipuncture Culture is incubating and being continuously mo nitored for growth. Final report to follow. - Diagnostic Findings Chest x-ray: report reviewed, image reviewed CT scan - chest: report reviewed, image reviewed - Clinical Findings Intake & Output: Intake & Output 02/22/19 02/23/19 02/23/19 23:59 07:59 15:59 Intake Total 1250 / 1250 1600 / 1600 Output Total 250 / 250 900 / 900 Balance 1000 / 1000 700 / 700 Weight 111.7 kg 111.7 kg
[2019-02-23] MEDS: cefTRIAXone 1,000 MG in Water for inj. (sterile) 10 ML IVPB SCH (08:17)
[2019-02-23] MEDS: Lisinopril 20 MG TABLET PO SCH (08:18)
[2019-02-23] MEDS: Gabapentin 400 MG CAPSULE PO SCH ×3 (08:18→20:35)
[2019-02-23] MEDS: Aspirin Enteric Coated 81 MG Tablet PO SCH (08:18)
[2019-02-23] MEDS: Insulin LISPRO 300 UNITS/3 ML VIAL SQ SCH ×6 (08:20→20:34)
[2019-02-23] MEDS: Acetaminophen 325 MG TABLET PO PRN ×2 (08:29→17:07)
--- NOTE | 2019-02-23 09:10 | Internal Med Progress Note ---
<Jacky Gonzalez - Last Filed: 02/23/19 18:02> Hospitalist Progress Note - Encounter Date of Encounter: 02/23/19 Time of Encounter: 08:30 - Subjective Interval History: CC: Dyspnea, fever, disillusionment History of present illness: Patient states that the above symptoms were acutely worsened 3 days ago while helping his grandson fix a anuj wire count fence. He cut his left forearm on the fence. He also scraped both of his legs one week ago on the right and 2 days ago on the left. The shortness of breath was progressively worsened for 2-3 weeks. Increased cough and sputum production within that time. No change in sputum color. Has had orthopnea, PND. PND is baseline for this patient. He has not been wearing his CPAP. No lower extremity edema recently, he is on home Lasix. Yesterday the symptoms worsened as he felt febrile and was asking his nonsensical questions. He did have some chest pain over the sternal area that was dull at the time. Says that this pain did not feel like his prior heart attacks. He felt like his whole body went numb at one point. His drove him to the emergency department. Course: The patient met 3 out of 4 SIRS criteria upon arrival with a temp of 103, pulse 127, RR 24. WBC WNL. Lactic acid WNL. Blood cultures 2 are negative to date. Sepsis bolus was given and azithromycin and ceftriaxone were begun. Other labs significant for Creatinine of 1.35, and negative troponins. CT of the chest showed lingular pneumonia, pulmonary mass in the right upper lobe. Legionella, strep urine antigens negative. Influenza test negative. The patient was admitted with the diagnoses of sepsis secondary to CAP pneumonia and JANETH. Pneumonia treated as above. JANETH was initially thought to be due to hypovolemia and sepsis; however creatinine did not improve with fluids so that a bladder scan, urine studies, CPK were ordered. Dr. Thakur is following the patient for the lung nodule. 02/23/19: Today he has continued congestion and mild dull chest tightness in the sternal area. He has pain in his neck that radiates to the head-this is not new for the patient. He feels better overall. He feels achy. His shortness of breath has improved and he has no other pain currently. - Exam Vitals: Temp Pulse Resp BP Pulse Ox 97.7 F 91 12 104/64 95 02/23/19 07:41 02/23/19 07:41 02/23/19 07:41 02/23/19 07:41 02/23/19 07:41 Exam: Gen.: Elderly male. No acute distress Skin: Excoriations on left forearm and bilateral lower extremities. Good turgor Eyes: Moist conjunctiva. Nonicteric Neck: No tender lymphadenopathy or thyromegaly Cardiac: Regular rate and rhythm. 2/6 systolic murmur best heard over aortic post. Possible hepatojugular reflex. No JVD noted. Respiratory: Dry crackles throughout. Worse at bases. GI: Reducible periumbilical hernia and bowel sounds heard within. Distended appearance is normal anatomy for this patient. No fluid wave. Some tenderness around the hernia which is chronic for this patient. Extremities: No clubbing. Capillary refill less than 2 seconds upper extremities. Neuro: Finger to nose testing bilaterally equal. At least cranial nerves III, 4, 6 intact. Gross strength upper and lower extremities intact. Alert and oriented 3. Psych: Appropriate mood and behavior. Answers questions coherently. - Assessment and Plan (1) Sepsis Current Visit: Yes Status: Acute Assessment and Plan: 02/23/19 -likely 2/2 CAP -SIRS 3/4: temp 103, pulse 127, rr 24, WBC 9.9; MAP 72 -lactic acid 1.9; blood cultures 02/22/19 x2 negative to date -Lingular pneumonia seen on chest CT -3L fluid given. -Azithromycin and ceftriaxone day 1. (2) Acute kidney injury Current Visit: Yes Status: Acute Assessment and Plan: 02/23/19 -consider 2/2 post renal obstruction vs. intrarenal -Initial creatinine 1.35 -3L fluids given with worsening creatinine -urine output reported as 1.3 L in 24 hours. bladder scan. urine studies. CPK. (3) COPD (chronic obstructive pulmonary disease) Current Visit: Yes Status: Chronic Assessment and Plan: 02/23/19 -likely 2/2 former cigarette use -Increased cough, sputum production, dyspnea for the past 3 weeks. No change in color of sputum -As seen on CXR. 02 sats good on room air. -Patient not on home nebulizers or inhalers per chart -Clinically his dyspnea has improved with treatment for sepsis secondary to pneumonia. Should consider optimization of outpatient meds if needed. (4) Heart failure Current Visit: Yes Status: Suspected Assessment and Plan: -Likely 2/2 HTN -Per patient history. Cannot find last echo in record. Review of systems positive for orthopnea. PND at baseline with CECI and noncompliance with CPAP. Denies swelling in lower extremities on home spironolactone regimen. -CAD s/p 3 RI's with 4 stents. -NYHA class likely 1. -ASCVD risk 30.8% using lipid panel from 07/13/18 -Troponin negative -Consider ordering BNP, TSH, hemoglobin A1c, lipid panel -No EKG -CXR read as mild perihilar vascular prominence without overt failure. As well as COPD -Nuclear stress test on 03/24/17 showed gated EF greater than or equal to 70% -ACEi, ASA, statin, spironolactone. Currently no beta jann on home meds -Clinically his dyspnea has improved with treatment for sepsis secondary to pneumonia and because of this I do not suspect heart failure is a component at this point. Should consider optimization of outpatient meds. (5) Lung mass Current Visit: Yes Status: Acute Assessment and Plan: 02/23/19 -consider 2/2 malignancy -45 years smoker 2ppd. stopped 2 years ago -2.2 cm right upper lobe mass seen on chest CT -Dr. Thakur will follow (6) Anemia Current Visit: Yes Status: Acute Assessment and Plan: 02/23/19 -consider 2/2 dilutional -Normocytic -has received 3 L of fluids -Hgb 12.7->10. repeat H&H at 14:00. Continue to monitor for signs of bleed. (7) Hypomagnesemia Current Visit: Yes Status: Acute Assessment and Plan: 02/23/19 -1.0 initially -1 g raised to 1.1 -2 g given today. continue to monitor (8) Diabetes Current Visit: Yes Status: Acute Assessment and Plan: -chronic -40 basal at night. 10 unit bolus at meals and followed by sliding scale at meals (9) CECI (obstructive sleep apnea) Current Visit: Yes Status: Chronic Assessment and Plan: -chronic -noncompliant with CPAP (10) Murmur Current Visit: Yes Status: Suspected Assessment and Plan: -suspected 2/6 systolic best over aortic post -will have colleagues corroborate -echo if needed DVT Prophylaxis: subq hep - Summary of Assessment and Plan Summary of Assessment and Plan: Sepsis 2/2 community acquired pneumonia 02/23/19 -likely 2/2 CAP -SIRS 10/11: temp 103, pulse 127, rr 24, WBC 9.9; MAP 72 -lactic acid 1.9; blood cultures 02/22/19 x2 negative to date -Lingular pneumonia seen on chest CT -3L fluid given. -Azithromycin and ceftriaxone day 1. JANETH 02/23/19 -consider 2/2 post renal obstruction vs. intrarenal -Initial creatinine 1.35 -3L fluids given with worsening creatinine -urine output reported as 1.3 L in 24 hours. bladder scan. urine studies. CPK. Anemia 02/23/19 -consider 2/2 dilutional -Normocytic -has received 3 L of fluids -Hgb 12.7->10. repeat H&H at 14:00. Continue to monitor for signs of bleed. Lung nodule 02/23/19 -consider 2/2 malignancy -45 years smoker 2ppd. stopped 2 years ago -2.2 cm right upper lobe mass seen on chest CT -Dr. Thakur will follow COPD 02/23/19 -likely 2/2 former cigarette use -Increased cough, sputum production, dyspnea for the past 3 weeks. No change in color of sputum -As seen on CXR. 02 sats good on room air. -Patient not on home nebulizers or inhalers per chart -Clinically his dyspnea has improved with treatment for sepsis secondary to pneumonia. Should consider optimization of outpatient meds if needed. CHF 02/23/19 -Likely 2/2 HTN -Per patient history. Cannot find last echo in record. Review of systems positive for orthopnea. PND at baseline with CECI and noncompliance with CPAP. Denies swelling in lower extremities on home spironolactone regimen -NYHA class likely 1. -ASCVD risk 30.8% using lipid panel from 07/13/18 -Troponin negative -Consider ordering BNP, TSH, hemoglobin A1c, lipid panel -No EKG -CXR read as mild perihilar vascular prominence without overt failure. As well as COPD -Nuclear stress test on 03/24/17 showed gated EF greater than or equal to 70% -ACEi, ASA, statin, spironolactone. Currently no beta jann on home meds -Clinically his dyspnea has improved with treatment for sepsis secondary to pneumonia and because of this I do not suspect heart failure is a component at this point. Should consider optimization of outpatient meds. Hypomagnesemia 02/23/19 -1.0 initially -1 g raised to 1.1 -2 g given today. continue to monitor Diabetes -chronic -40 basal at night. 10 unit bolus at meals and followed by sliding scale at meals CECI -chronic -noncompliant with CPAP - Time Spent with Patient Total time spent is greater than 50% in coordination of care (as documented) at patient's floor/unit and/or counseling patient: Internal Medicine: Result - Labs CBC & Chem 7: 02/23/19 13:36 02/23/19 04:44 Labs: Short CBC 02/22/19 02/23/19 Range/Units 16:06 04:44 WBC 9.9 15.0 H D (4.3-11.1) K/mcL Hgb 12.7 L 10.0 L D (12.9-16.9) g/dL Hct 38.7 31.1 L (37.5-50.1) % Plt Count 178 139 L (140-400) K/mcL Neutrophils # 8.4 12.2 H (1.6-8.9) K/mcL BMP 02/22/19 02/23/19 16:06 04:44 Sodium 137 133 L Potassium 3.9 4.8 Chloride 99 98 Carbon Dioxide 26 25 BUN 20 21 Creatinine 1.35 H 1.47 H Glucose 155 H 294 H Calcium 10.0 8.6 Cardiac Enzymes 02/22/19 Range/Units 16:06 Troponin I < 0.03 (< 0.04) ng/mL Liver Function 02/22/19 Range/Units 16:06 Total Bilirubin 0.4 (0.3-1.0) mg/dL Direct Bilirubin 0.1 (0.0-0.2) mg/dL AST 18 (13-39) Units/L ALT 16 (7-52) Units/L Alkaline Phosphatase 52 (34-104) Units/L Albumin 4.8 (3.5-5.7) g/dL - ABG Interpretation ABG results: PT/INR, D-dimer PT 14.2 Seconds (9.4-12.1) H 02/23/19 04:44 - Impressions Impressions Chest X-Ray 02/22/19 16:01 IMPRESSION: Mild perihilar vascular prominence without overt failure. COPD. D/ / 02/22/2019 16:38:24 Liza Berrios MD / henrry Interpreting Provider: Liza Berrios MD Abdomen/Pelvis CT 02/22/19 17:47 IMPRESSION: 1. Lingular pneumonia 2. 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 No findings of thoracic or abdominopelvic metastatic disease 3. Calcific coronary atherosclerosis 4. Colonic diverticulosis D/ / Refugio Hernandez MD / Refugio Hernandez MD Interpreting Provider: Refugio Hernandez MD Chest CT 02/22/19 17:47 IMPRESSION: 1. Lingular pneumonia 2. 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 No findings of thoracic or abdominopelvic metastatic disease 3. Calcific coronary atherosclerosis 4. Colonic diverticulosis D/ / Refugio Hernandez MD / Refugio Hernandez MD Interpreting Provider: Refugio Hernandez MD Head CT 02/22/19 17:47 IMPRESSION: No acute intracranial abnormality. D/ / mAber Watt Cha, MD / Amber Watt Cha, MD Interpreting Provider: Amber Watt Cha, MD Consult Discharge Plan - Plan Referrals: Denisha Lozoya CNP [Primary Care Provider] - <Jose Christie - Last Filed: 02/23/19 18:17> Hospitalist Progress Note - Encounter Date of Encounter: 02/23/19 - Exam Vitals: Temp Pulse Resp BP Pulse Ox 97.9 F 105 14 129/83 94 02/23/19 16:00 02/23/19 16:00 02/23/19 16:00 02/23/19 16:00 02/23/19 16:00 - Assessment and Plan (1) COPD (chronic obstructive pulmonary disease) Current Visit: Yes Status: Suspected (2) CECI (obstructive sleep apnea) Current Visit: Yes Status: Chronic (3) Pneumonia Current Visit: Yes Status: Suspected (4) Lung mass Current Visit: Yes Status: Acute (5) History of tobacco abuse Current Visit: Yes Status: Chronic (6) CAD (coronary artery disease) Current Visit: No Status: Chronic (7) Diabetes Current Visit: Yes Status: Acute (8) Sepsis Current Visit: Yes Status: Suspected - Time Spent with Patient Total time spent is greater than 50% in coordination of care (as documented) at patient's floor/unit and/or counseling patient: Internal Medicine: Result - Labs CBC & Chem 7: 02/23/19 13:36 02/23/19 04:44 Labs: Short CBC 02/23/19 02/23/19 Range/Units 04:44 13:36 WBC 15.0 H D (4.3-11.1) K/mcL Hgb 10.0 L D 10.7 L (12.9-16.9) g/dL Hct 31.1 L 33.8 L (37.5-50.1) % Plt Count 139 L (140-400) K/mcL Neutrophils # 12.2 H (1.6-8.9) K/mcL BMP 02/23/19 04:44 Sodium 133 L Potassium 4.8 Chloride 98 Carbon Dioxide 25 BUN 21 Creatinine 1.47 H Glucose 294 H Calcium 8.6 Urine 02/23/19 Range/Units 15:10 Urine Color Yellow (Yellow) Urine Clarity Clear (Clear) Urine pH 7.5 (5.0-8.0) pH Units Ur Specific [place] 1.017 (1.010-1.025) Urine Protein Negative (Neg-Trace) mg/dL Urine Glucose (UA) >=1000 H (Normal) mg/dL - ABG Interpretation ABG results: PT/INR, D-dimer PT 14.2 Seconds (9.4-12.1) H 02/23/19 04:44 - Impressions Impressions Chest X-Ray 02/22/19 16:01 IMPRESSION: Mild perihilar vascular prominence without overt failure. COPD. D/ / 02/22/2019 16:38:24 Liza Berrios MD / henrry Interpreting Provider: Liza Berrios MD Abdomen/Pelvis CT 02/22/19 17:47 IMPRESSION: 1. Lingular pneumonia 2. 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 No findings of thoracic or abdominopelvic metastatic disease 3. Calcific coronary atherosclerosis 4. Colonic diverticulosis D/ / Refugio Hernandez MD / Refugio Hernandez MD Interpreting Provider: Refugio Hernandez MD Chest CT 02/22/19 17:47 IMPRESSION: 1. Lingular pneumonia 2. 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 No findings of thoracic or abdominopelvic metastatic disease 3. Calcific coronary atherosclerosis 4. Colonic diverticulosis D/ / Refugio Hernandez MD / Refugio Hernandez MD Interpreting Provider: Refugio Hernandez MD Head CT 02/22/19 17:47 IMPRESSION: No acute intracranial abnormality. D/ / Amber Watt Cha, MD / Amber Watt Cha, MD Interpreting Provider: Amber Watt Cha, MD - Attending Attestation I examined this patient and my medical decision-making was reviewed with the Resident Physician on 02/23/19. I agree with the documented findings, disposition and treatment plan as described except to the extent set forth below. Mr Schofield is currently hospitalized for pneumonia and lung mass. He remains moderate to high risk due to potential for worsening respiratory status. Mr Schofield is doing OK. He has a headache which he has had before. No fever. Coughing. No CP. Exam: Alert. Comfortable. NC. Mucus membranes moist. Heart not tachy. No wheeze - rhonchi are noted L side. Abd nontender. No rash. Moves all extremities with no focal neuro deficit. No edema. Plan continue abx. Pulm eval appreciated. Anticipate d/c in next 24 - 48 hours if stable. <Jacky Gonzalez - Last Filed: 02/23/19 18:02> (1) Sepsis Qualifiers: Sepsis type: sepsis due to unspecified organism Qualified Code(s): A41.9 - Sepsis, unspecified organism (3) COPD (chronic obstructive pulmonary disease) Qualifiers: COPD type: emphysema Emphysema type: unspecified Qualified Code(s): J43.9 - Emphysema, unspecified <Jose Christie - Last Filed: 02/23/19 18:17> (1) COPD (chronic obstructive pulmonary disease) Qualifiers: COPD type: emphysema Emphysema type: panlobular Qualified Code(s): J43.1 - Panlobular emphysema (3) Pneumonia Qualifiers: Pneumonia type: due to Pneumococcus Laterality: left Lung location: unspec ified part of lung Qualified Code(s): J13 - Pneumonia due to Streptococcus pneumoniae (6) CAD (coronary artery disease) Qualifiers: Coronary Disease-Associated Artery/Lesion type: [place] artery [place] vs. 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
[2019-02-23 13:51] LABS: Hematocrit 33.8 % (37.5-50.1); Hemoglobin 10.7 g/dL (12.9-16.9)
[2019-02-23 15:19] LABS: Bilirubin,Urine Negative (Negative); Blood,Urine Negative (Negative); Clarity,Urine Clear (Clear); Color,Urine Yellow (Yellow); Glucose,Urine (UA) >=1000 mg/dL (Normal); Ketones,Urine Negative (Negative); Leukocyte Esterase,Urine Negative (Negative); Nitrite,Urine Negative (Negative); PH,Urine 7.5 pH Units (5.0-8.0); Protein,Urine Negative (Neg-Trace); Specific Gravity,Urine 1.017 (1.010-1.025); Urobilinogen,Urine Normal (Normal)
[2019-02-23] MEDS: Azithromycin 500 MG in D5% in Water 250 ML IVPB SCH (17:07)
[2019-02-23] MEDS ORDERED: Insulin DETEMIR 100 UNIT/ML X5UNITS SQ SCH (21:00)
[2019-02-24] MEDS: Ibuprofen 600 MG TABLET PO PRN (00:19)
[2019-02-24] MEDS ORDERED: *HR* Promethazine 25 MG/ML VIAL IVP PRN (00:33)
[2019-02-24] MEDS: *HR* Heparin 5,000 UNIT/ML VIAL SQ SCH ×2 (04:34→18:16)
[2019-02-24 06:09] LABS: Basophils # 0.1 K/mcL (0.0-0.2); Basophils % 0.4 %; Eosinophils # 0.2 K/mcL (0.0-0.6); Eosinophils % 1.2 %; Hematocrit 29.8 % (37.5-50.1); Hemoglobin 9.4 g/dL (12.9-16.9); Immature Granulocytes % 0.8 % (0-4); Mean Corpuscular HGB Conc 31.5 g/dL (31.6-35.5); Mean Corpuscular Hemoglobin 29.2 pg (28.0-33.3); Mean Corpuscular Volume 92.5 fL (83.0-100.0); Monocytes % 7.3 %; Neutrophils # 10.2 K/mcL (1.6-8.9); Platelet Count 149 K/mcL (140-400); Red Blood Count 3.22 M/mcL (4.19-5.50); Red Cell Distribution Width 14.6 % (11.5-14.5); Segmented Neutrophils % 75.3 %; White Blood Count 13.5 K/mcL (4.3-11.1)
[2019-02-24 06:37] LABS: BUN/Creatinine Ratio 12 (6-26); Blood Urea Nitrogen 16 mg/dL (8-23); Calcium 8.9 mg/dL (8.6-10.3); Carbon Dioxide 26 mEq/L (23-29); Chloride 96 mEq/L (98-107); Glucose 269 mg/dL (70-105); Magnesium 1.6 mg/dL (1.6-2.6); Osmolality,Calculated 297 (280-300); Potassium 4.5 mEq/L (3.5-5.1); Sodium 138 mEq/L (136-145); eGFR For African Americans > 60 (> 60); eGFR For Non-African Americans 55 (> 60)
--- NOTE | 2019-02-24 07:22 | Internal Med Progress Note ---
<Jose Christie - Last Filed: 02/24/19 15:23> Hospitalist Progress Note - Encounter Date of Encounter: 02/24/19 - Exam Vitals: Temp Pulse Resp BP Pulse Ox 98.2 F 88 14 129/70 96 02/24/19 11:44 02/24/19 11:44 02/24/19 11:44 02/24/19 11:44 02/24/19 11:44 - Assessment and Plan (1) COPD (chronic obstructive pulmonary disease) Current Visit: Yes Status: Suspected (2) CECI (obstructive sleep apnea) Current Visit: Yes Status: Chronic (3) Pneumonia Current Visit: Yes Status: Suspected (4) Lung mass Current Visit: Yes Status: Acute (5) History of tobacco abuse Current Visit: Yes Status: Chronic (6) CAD (coronary artery disease) Current Visit: No Status: Chronic (7) Diabetes Current Visit: Yes Status: Acute (8) Sepsis Current Visit: Yes Status: Suspected - Time Spent with Patient Total time spent is greater than 50% in coordination of care (as documented) at patient's floor/unit and/or counseling patient: Internal Medicine: Result - Labs CBC & Chem 7: 02/24/19 05:48 02/24/19 05:48 Labs: Short CBC 02/24/19 Range/Units 05:48 WBC 13.5 H (4.3-11.1) K/mcL Hgb 9.4 L (12.9-16.9) g/dL Hct 29.8 L (37.5-50.1) % Plt Count 149 (140-400) K/mcL Neutrophils # 10.2 H (1.6-8.9) K/mcL BMP 02/24/19 05:48 Sodium 138 Potassium 4.5 Chloride 96 L Carbon Dioxide 26 BUN 16 Creatinine 1.31 H Glucose 269 H Calcium 8.9 - ABG Interpretation ABG results: PT/INR, D-dimer PT 14.2 Seconds (9.4-12.1) H 02/23/19 04:44 - Impressions Impressions Chest X-Ray 02/22/19 16:01 IMPRESSION: Mild perihilar vascular prominence without overt failure. COPD. D/ / 02/22/2019 16:38:24 Liza Berrios MD / henrry Interpreting Provider: Liza Berrios MD Consult Discharge Plan - Plan Referrals: Denisha Lozoya CNP [Primary Care Provider] - - Attending Attestation I examined this patient and my medical decision-making was reviewed with the Resident Physician on 02/24/19. I agree with the documented findings, disposition and treatment plan as described except to the extent set forth below. Mr Schofield is currently admitted for acute pneumonia. He remains moderate to high risk due to potential for worsening clinical status. Mr Schofield is having myalgias and arthralgias and still has headache. Had fever last night - none now. No CP. No SOB. Still with cough. No GI issues. Exam: Alert. NC. Comfortable. Mucus membranes dry. Heart reg - not tachy. Rhonchi heard on L. Abd soft. No edema. Moves all extremities. No rash. Plan: Check procal and BNP. Check RIP. Continue abx. Possible d/c tomorrow if stable. <Jacky Gonzalez - Last Filed: 02/24/19 19:55> Hospitalist Progress Note - Encounter Date of Encounter: 02/24/19 Time of Encounter: 10:00 - Subjective Interval History: Patient states he had 1 episode of nonbloody emesis last night around 10:00. His nausea and emesis have resolved. Overall he feels worse than yesterday. Hemoglobin dropped 1 point today. Patient denies history of GI bleed. Denies hematuria or hematochezia or hematemesis or coughing up blood. Continued fevers. Patient spends a lot of time around cattle and dogs but no other animals. Has found ticks on him recently but none seem to have been embedded. He does not get bitten by mosquitoes often. Denies travel out of the country, sick contacts. - Exam Vitals: Temp Pulse Resp BP Pulse Ox 98.2 F 77 14 103/62 92 02/24/19 06:51 02/24/19 06:51 02/24/19 06:51 02/24/19 06:51 02/24/19 06:51 Exam: Gen.: Middle-aged male. Appears tired Skin: Full body skin exam revealed no obvious signs of infection or cellulitis. Mild excoriations on bilateral legs and left arm appear noninfected. Good turgor Neck: Supple. Nonpainful with extension. Cardiac: Regular rate and rhythm. 1/6 systolic murmur best heard over the aortic post. No Hernandez spots, conjunctival hemorrhages, splinter hemorrhages, Osler nodes, [place]ay lesions. Respiratory: Basilar dry crackles GI: Chronic tenderness in the area of former hernia surgery. Hernia still present and reducible. Distended appearance of abdomen is baseline since surgery. Extremities: Homans sign negative. 1+ pitting edema worse on the left bilateral lower extremities reaches to the knee. Psychiatric: Appropriate behavior. Answers questions coherently. - Assessment and Plan (1) Sepsis Current Visit: Yes Status: Suspected Assessment and Plan: 02/23/19 -likely 2/2 CAP -SIRS 3/: temp 103, pulse 127, rr 24, WBC 9.9; MAP 72 -lactic acid 1.9; blood cultures 02/22/19 x2 negative to date -Lingular pneumonia seen on chest CT -3L fluid given. -Azithromycin and ceftriaxone discontinued 02/24/19 -patient febrile overnight. pro calcitonin, viral respiratory panel pending. Patient febrile again this afternoon. Repeat blood cultures 2, lactic acid. MRSA swab, PA/lateral film. Discontinued azithromycin and ceftriaxone. Began Vanco and Zosyn day 1. (2) Acute kidney injury Current Visit: Yes Status: Acute Assessment and Plan: 02/23/19 -consider 2/2 post renal obstruction vs. intrarenal -Initial creatinine 1.35 -3L fluids given with worsening creatinine -urine output reported as 1.3 L in 24 hours. bladder scan. CPK. 02/24/19 -Bladder scan report pending. Patient states he does not have difficulty urinating however tells us that he had residual urine on scan. CPK trending downward. UA negative for blood or protein. We will hold on further urine st udies for now. (3) COPD (chronic obstructive pulmonary disease) Current Visit: Yes Status: Suspected Assessment and Plan: 02/23/19 -likely 2/2 former cigarette use -Increased cough, sputum production, dyspnea for the past 3 weeks. No change in color of sputum -As seen on CXR. 02 sats good on room air. -Patient not on home nebulizers or inhalers per chart -Clinically his dyspnea has improved with treatment for sepsis secondary to pneumonia. Should consider optimization of outpatient meds if needed. (4) Heart failure Current Visit: Yes Status: Suspected Assessment and Plan: -Likely 2/2 HTN -Per patient history. Last echo July 2018 showed LVEF of 55-60% with mild LV diastolic dysfunction. Review of systems positive for orthopnea. PND at baseline with CECI and noncompliance with CPAP. Denies swelling in lower extremities on home spironolactone regimen. -CAD s/p 3 WV's with 4 stents. -NYHA class likely 1. -ASCVD risk 30.8% using lipid panel from 07/13/18 -Troponin negative -Consider ordering BNP, TSH, hemoglobin A1c, lipid panel -No EKG -CXR read as mild perihilar vascular prominence without overt failure. As well as COPD -Nuclear stress test on 03/24/17 showed gated EF greater than or equal to 70% -ACEi, ASA, statin, spironolactone. Currently no beta jann on home meds -Clinically his dyspnea has improved with treatment for sepsis secondary to pneumonia and because of this I do not suspect heart failure is a component at this point. Should consider optimization of outpatient meds. 02/24/19 -BNP pending for r/o HF component (5) Lung mass Current Visit: Yes Status: Acute Assessment and Plan: 02/23/19 -consider 2/2 malignancy -45 years smoker 2ppd. stopped 2 years ago -2.2 cm right upper lobe mass seen on chest CT -Dr. Thakur will follow (6) Anemia Current Visit: Yes Status: Acute Assessment and Plan: 02/23/19 -consider 2/2 dilutional -Normocytic -has received 3 L of fluids -Hgb 12.7->10. repeat H&H at 14:00. Continue to monitor for signs of bleed. 02/24/19 -Repeat H&H 10.7> 9.4 this morning. -FOBT pending (7) Hypomagnesemia Current Visit: Yes Status: Acute Assessment and Plan: 02/23/19 -1.0 initially -1 g raised to 1.1 -2 g given today. continue to monitor 02/24/19 -1.6 (8) Diabetes Current Visit: Yes Status: Acute Assessment and Plan: -chronic -40 basal at night. 10 unit bolus at meals and followed by medium dose sliding scale at meals 02/24/19 -Blood glucose elevated all day. 45 basal. (9) CECI (obstructive sleep apnea) Current Visit: Yes Status: Chronic Assessment and Plan: -chronic -noncompliant with CPAP (10) Murmur Current Visit: Yes Status: Suspected Assessment and Plan: -Suspect calcification of aortic valve due to aging and aortic stenosis. -2/6 systolic best over aortic post -July 2018 echo showed mild aortic regurg and no other valvular abnormalities were mentioned. -echo will be considered. I think it more likely that dyspnea on presentation and heart failure type symptoms are 2/2 infectious process at this point DVT Prophylaxis: subq hep - Summary of Assessment and Plan Summary of Assessment and Plan: (1) Sepsis Current Visit: Yes Status: Acute Assessment and Plan: 02/23/19 -likely 2/2 CAP -SIRS 3/: temp 103, pulse 127, rr 24, WBC 9.9; MAP 72 -lactic acid 1.9; blood cultures 02/22/19 x2 negative to date -Lingular pneumonia seen on chest CT -3L fluid given. -Azithromycin and ceftriaxone discontinued 02/24/19 -patient febrile overnight. pro calcitonin, viral respiratory panel pending. Patient febrile again this afternoon. Repeat blood cultures 2, lactic acid. MRSA swab, PA/lateral film. Discontinued azithromycin and ceftriaxone. Began Vanco and Zosyn day 1. (2) Acute kidney injury Current Visit: Yes Status: Acute Assessment and Plan: 02/23/19 -consider 2/2 post renal obstruction vs. intrarenal -Initial creatinine 1.35 -3L fluids given with worsening creatinine -urine output reported as 1.3 L in 24 hours. bladder scan. CPK. 02/24/19 -Bladder scan report pending. Patient states he does not have difficulty urinating however tells us that he had residual urine on scan. CPK trending downward. We will hold on further urine studies for now. (3) COPD (chronic obstructive pulmonary disease) Current Visit: Yes Status: Chronic Assessment and Plan: 02/23/19 -likely 2/2 former cigarette use -Increased cough, sputum production, dyspnea for the past 3 weeks. No change in color of sputum -As seen on CXR. 02 sats good on room air. -Patient not on home nebulizers or inhalers per chart -Clinically his dyspnea has improved with treatment for sepsis secondary to pneumonia. Should consider optimization of outpatient meds if needed. (4) Heart failure Current Visit: Yes Status: Suspected Assessment and Plan: -Likely 2/2 HTN -Per patient history. Last echo July 2018 showed LVEF of 55-60% with mild LV diastolic dysfunction. Review of systems positive for orthopnea. PND at baseline with CECI and noncompliance with CPAP. Denies swelling in lower extremities on home spironolactone regimen. -CAD s/p 3 WV's with 4 stents. -NYHA class likely 1. -ASCVD risk 30.8% using lipid panel from 07/13/18 -Troponin negative -Consider ordering BNP, TSH, hemoglobin A1c, lipid panel -No EKG -CXR read as mild perihilar vascular prominence without overt failure. As well as COPD -Nuclear stress test on 03/24/17 showed gated EF greater than or equal to 70% -ACEi, ASA, statin, spironolactone. Currently no beta jann on home meds -Clinically his dyspnea has improved with treatment for sepsis secondary to pneumonia and because of this I do not suspect heart failure is a component at this point. Should consider optimization of outpatient meds. 02/24/19 -BNP pending for r/o HF component (5) Lung mass Current Visit: Yes Status: Acute Assessment and Plan: 02/23/19 -consider 2/2 malignancy -45 years smoker 2ppd. stopped 2 years ago -2.2 cm right upper lobe mass seen on chest CT -Dr. Thakur will follow (6) Anemia Current Visit: Yes Status: Acute Assessment and Plan: 02/23/19 -consider 2/2 dilutional -Normocytic -has received 3 L of fluids -Hgb 12.7->10. repeat H&H at 14:00. Continue to monitor for signs of bleed. 02/24/19 -Repeat H&H 10.7> 9.4 this morning. -FOBT pending (7) Hypomagnesemia Current Visit: Yes Status: Acute Assessment and Plan: 02/23/19 -1.0 initially -1 g raised to 1.1 -2 g given today. continue to monitor 02/24/19 -1.6 (8) Diabetes Current Visit: Yes Status: Acute Assessment and Plan: -chronic -40 basal at night. 10 unit bolus at meals and followed by medium dose sliding scale at meals 02/24/19 -Blood glucose elevated all day. 45 basal. (9) CECI (obstructive sleep apnea) Current Visit: Yes Status: Chronic Assessment and Plan: -chronic -noncompliant with CPAP (10) Murmur Current Visit: Yes Status: Suspected Assessment and Plan: -Suspect calcification of aortic valve due to aging and aortic stenosis. -2/6 systolic best over aortic post -July 2018 echo showed mild aortic regurg and no other valvular abnormalities were mentioned. -echo will be considered. I think it more likely that dyspnea on presentation and heart failure type symptoms are 2/2 infectious process at this point - Time Spent with Patient Total time spent is greater th Internal Medicine: Result - Labs CBC & Chem 7: 02/24/19 05:48 02/24/19 05:48 Labs: Short CBC 02/23/19 02/24/19 Range/Units 13:36 05:48 WBC 13.5 H (4.3-11.1) K/mcL Hgb 10.7 L 9.4 L (12.9-16.9) g/dL Hct 33.8 L 29.8 L (37.5-50.1) % Plt Count 149 (140-400) K/mcL Neutrophils # 10.2 H (1.6-8.9) K/mcL BMP 02/24/19 05:48 Sodium 138 Potassium 4.5 Chloride 96 L Carbon Dioxide 26 BUN 16 Creatinine 1.31 H Glucose 269 H Calcium 8.9 Urine 02/23/19 Range/Units 15:10 Urine Color Yellow (Yellow) Urine Clarity Clear (Clear) Urine pH 7.5 (5.0-8.0) pH Units Ur Specific [place] 1.017 (1.010-1.025) Urine Protein Negative (Neg-Trace) mg/dL Urine Glucose (UA) >=1000 H (Normal) mg/dL - ABG Interpretation ABG results: PT/INR, D-dimer PT 14.2 Seconds (9.4-12.1) H 02/23/19 04:44 - Impressions Impressions Chest X-Ray 02/22/19 16:01 IMPRESSION: Mild perihilar vascular prominence without overt failure. COPD. D/ / 02/22/2019 16:38:24 Liza Berrios MD / henrry Interpreting Provider: Liza Berrios MD ____ <Jose Christie - Last Filed: 02/24/19 15:23> (1) COPD (chronic obstructive pulmonary disease) Qualifiers: COPD type: emphysema Emphysema type: panlobular Qualified Code(s): J43.1 - Panlobular emphysema (3) Pneumonia Qualifiers: Pneumonia type: due to Pneumococcus Laterality: left Lung location: unspecif ied part of lung Qualified Code(s): J13 - Pneumonia due to Streptococcus p neumoniae (6) CAD (coronary artery disease) Qualifiers: Coronary Disease-Associated Artery/Lesion type: [place] artery [place] vs. 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 Diabetes mellitus complication status: without complication Qualified Code(s): E11.9 - Type 2 diabetes mellitus without complications; Z79.4 - nursing home (current) use of insulin (8) Sepsis Qualifiers: Sepsis type: Pneumococcus Qualified Code(s): A40.3 - Sepsis due to Streptococcus pneumoniae <Jacky Gonzalez G - Last Filed: 02/24/19 19:55> (1) Sepsis Qualifiers: Sepsis type: Pneumococcus Qualified Code(s): A40.3 - Sepsis due to Strepto coccus pneumoniae (3) COPD (chronic obstructive pulmonary disease) Qualifiers: COPD type: emphysema Emphysema type: panlobular Qualified Code(s): J43.1 - Panlobular emphysema (8) Diabetes Qualifiers: Diabetes mellitus type: type 2 Diabetes mellitus [employer] insulin use: with [facility] use Diabetes mellitus complication status: without complication Qualified Code(s): E11.9 - Type 2 diabetes mellitus without complications; Z79.4 - director energy (current) use of insulin
[2019-02-24] MEDS: Aspirin Enteric Coated 81 MG Tablet PO SCH (07:36)
[2019-02-24] MEDS: cefTRIAXone 1,000 MG in Water for inj. (sterile) 10 ML IVPB SCH (07:36)
[2019-02-24] MEDS: Gabapentin 400 MG CAPSULE PO SCH ×3 (07:36→20:09)
[2019-02-24] MEDS: Lisinopril 20 MG TABLET PO SCH (07:36)
[2019-02-24] MEDS: Insulin LISPRO 300 UNITS/3 ML VIAL SQ SCH ×7 (07:38→20:08)
[2019-02-24] MEDS: traMADol 50 MG TABLET PO PRN (09:58)
[2019-02-24] MEDS ORDERED: Furosemide 20 MG/2 ML VIAL IVP ONE (11:49)
[2019-02-24] MEDS: Acetaminophen 325 MG TABLET PO PRN (15:15)
[2019-02-24] MEDS ORDERED: Acetaminophen/Aspirin/Caffeine TABLET PO PRN (18:17)
[2019-02-24] MEDS: Azithromycin 500 MG in D5% in Water 250 ML IVPB SCH (18:18)
[2019-02-24 18:20] LABS: Adenovirus Not Detected (Not Detect); Bordetella Pertussis Not Detected (Not Detect); Chlamydophila pneumoniae Not Detected (Not Detect); Coronavirus 229E Not Detected (Not Detect); Coronavirus HKU1 Not Detected (Not Detect); Coronavirus NL63 Not Detected (Not Detect); Coronavirus OC43 Not Detected (Not Detect); Human Metapneumovirus Not Detected (Not Detect); Human Rhinovirus/Enterovirus DETECTED (Not Detect); Influenza A Subtype 2009 H1 Not Detected (Not Detect); Influenza A Untypeable Not Detected (Not Detect); Influenza B Not Detected (Not Detect); Mycoplasma pneumoniae Not Detected (Not Detect); Parainfluenza Virus 1 Not Detected (Not Detect); Parainfluenza Virus 2 Not Detected (Not Detect); Parainfluenza Virus 3 Not Detected (Not Detect); Parainfluenza Virus 4 Not Detected (Not Detect); Respiratory Syncytial Virus Not Detected (Not Detect)
[2019-02-24] MEDS ORDERED: Vancomycin 1,750 MG in 0.9 % Sodium Chloride 250 ML IVPB SCH (19:00)
[2019-02-24] MEDS: Insulin DETEMIR 100 UNIT/ML X5UNITS SQ SCH (20:09)
[2019-02-25] MEDS: Piperacillin/Tazobactam 3.375 GM in 0.9 % Sodium Chloride Mini Bag 100 ML IVPB SCH ×2 (00:29→08:29)
[2019-02-25] MEDS: *HR* Heparin 5,000 UNIT/ML VIAL SQ SCH ×2 (04:59→17:06)
[2019-02-25 05:59] LABS: INR 1.1; Prothrombin Time 12.8 Seconds (9.4-12.1)
[2019-02-25 06:01] LABS: Basophils # 0.1 K/mcL (0.0-0.2); Basophils % 0.9 %; Eosinophils # 0.3 K/mcL (0.0-0.6); Eosinophils % 4.1 %; Hematocrit 32.3 % (37.5-50.1); Hemoglobin 10.1 g/dL (12.9-16.9); Immature Granulocytes % 0.7 % (0-4); Lymphocytes # 1.6 K/mcL (0.6-4.6); Lymphocytes % 19.5 %; Mean Corpuscular HGB Conc 31.3 g/dL (31.6-35.5); Mean Corpuscular Hemoglobin 28.4 pg (28.0-33.3); Mean Corpuscular Volume 90.7 fL (83.0-100.0); Mean Platelet Volume 12.4 fL (9.4-12.4); Monocytes # 0.5 K/mcL (0.0-1.3); Monocytes % 6.1 %; Neutrophils # 5.5 K/mcL (1.6-8.9); Platelet Count 169 K/mcL (140-400); Red Blood Count 3.56 M/mcL (4.19-5.50); Red Cell Distribution Width 14.4 % (11.5-14.5); Segmented Neutrophils % 68.7 %
[2019-02-25 06:02] LABS: BUN/Creatinine Ratio 10 (6-26); Blood Urea Nitrogen 13 mg/dL (8-23); Calcium 9.7 mg/dL (8.6-10.3); Carbon Dioxide 28 mEq/L (23-29); Chloride 97 mEq/L (98-107); Glucose 209 mg/dL (70-105); Magnesium 1.5 mg/dL (1.6-2.6); Osmolality,Calculated 300 (280-300); Potassium 4.2 mEq/L (3.5-5.1); Sodium 142 mEq/L (136-145); eGFR For African Americans > 60 (> 60); eGFR For Non-African Americans 59 (> 60)
[2019-02-25] MEDS: Lisinopril 20 MG TABLET PO SCH (08:26)
[2019-02-25] MEDS: Gabapentin 400 MG CAPSULE PO SCH ×3 (08:26→20:56)
[2019-02-25] MEDS: Aspirin Enteric Coated 81 MG Tablet PO SCH (08:27)
[2019-02-25] MEDS: Insulin LISPRO 300 UNITS/3 ML VIAL SQ SCH ×7 (08:29→21:48)
--- NOTE | 2019-02-25 08:30 | Internal Med Progress Note ---
<Jose Christie - Last Filed: 02/25/19 16:39> Hospitalist Progress Note - Encounter Date of Encounter: 02/25/19 - Exam Vitals: Temp Pulse Resp BP Pulse Ox 97.7 F 87 12 136/72 94 02/25/19 16:27 02/25/19 16:27 02/25/19 16:27 02/25/19 16:27 02/25/19 16:27 - Assessment and Plan (1) COPD (chronic obstructive pulmonary disease) Current Visit: Yes Status: Suspected (2) CECI (obstructive sleep apnea) Current Visit: Yes Status: Chronic (3) Pneumonia Current Visit: Yes Status: Suspected (4) Lung mass Current Visit: Yes Status: Acute (5) History of tobacco abuse Current Visit: Yes Status: Chronic (6) CAD (coronary artery disease) Current Visit: No Status: Chronic (7) Diabetes Current Visit: Yes Status: Acute (8) Sepsis Current Visit: Yes Status: Resolved (9) Hypomagnesemia Current Visit: Yes Status: Acute (10) Constipation Current Visit: Yes Status: Acute - Time Spent with Patient Total time spent is greater than 50% in coordination of care (as documented) at patient's floor/unit and/or counseling patient: Internal Medicine: Result - Labs CBC & Chem 7: 02/25/19 05:04 02/25/19 05:04 Labs: Short CBC 02/25/19 Range/Units 05:04 WBC 8.0 (4.3-11.1) K/mcL Hgb 10.1 L (12.9-16.9) g/dL Hct 32.3 L (37.5-50.1) % Plt Count 169 (140-400) K/mcL Neutrophils # 5.5 (1.6-8.9) K/mcL BMP 02/25/19 05:04 Sodium 142 Potassium 4.2 Chloride 97 L Carbon Dioxide 28 BUN 13 Creatinine 1.24 Glucose 209 H Calcium 9.7 - ABG Interpretation ABG results: PT/INR, D-dimer PT 12.8 Seconds (9.4-12.1) H 02/25/19 05:04 - Impressions Impressions Chest X-Ray 02/24/19 18:07 IMPRESSION: 1. Right upper lobe nodule again seen. 2. Developing left perihilar airspace disease could represent pneumonia. D/ / Sander Phillips MD / Sander Phillips MD Interpreting Provider: Sander Phillips MD Consult Discharge Plan - Plan Referrals: Denisha Lozoya CNP [Primary Care Provider] - - Attending Attestation I examined this patient and my medical decision-making was reviewed with the Resident Physician on 02/25/19. I agree with the documented findings, disposition and treatment plan as described except to the extent set forth below. Mr Schofield is currently admitted for acute pneumonia. He has developed some abdominal pain. He remains moderate to high risk due to potential for worsening clinical and respiratory status. Mr Schofield is up in chair. No fever. Less cough. Has some abdominal pain - chronic in nature. Constipated. Exam: Alert comfortable. NC. Neck supple. Mucus membranes dry. Heart reg - not tachy. Lungs less congested. Abd soft. Minimal tenderness R side of abdomen with no rebound or guarding now. No edema. No rash. Moves all extremities. Plan: Deescalate abx. Bowel regimen. Plan d/c tomorrow. <Jacky Gonzalez G - Last Filed: 02/25/19 19:07> Hospitalist Progress Note - Encounter Date of Encounter: 02/25/19 Time of Encounter: 08:30 - Subjective Interval History: Patient complains of increasing abdominal discomfort with a poor appetite. No episodes of vomiting. Complains of constipation and says his headache is some improved. No hematochezia noticed with home bowel movements. - Exam Vitals: Temp Pulse Resp BP Pulse Ox 98.0 F 83 12 125/71 92 02/25/19 07:48 02/25/19 07:48 02/25/19 07:48 02/25/19 07:48 02/25/19 07:48 Exam: Gen.: Middle-aged male. Tired appearing. Skin: Good turgor. Excoriation sites healing well on left forearm and bilateral lower extremities. ENT: Moist oral mucosa with no superior tongue lesions Neck: No tender lymphadenopathy. Supple. Cardiac: 2/6 systolic murmur best heard over aortic valve. Regular rate and rhythm. No rubs or gallops. Respiratory: Dry basilar and middle lobar region crackles bilaterally. Abdominal: Distended. No jaundice. Umbilical hernia repair site reducible and bowel sounds heard within. Diffusely tender to palpation in all quadrants and epigastric area. Tenderness is worse in the lower quadrants and epigastric area and guarding is present. Rovsing's negative. Obturator positive. No rebound tenderness. Extremities: Capillary refill less than 2 seconds upper extremities. 1+ pitting edema bilateral lower extremities to the knee. - Assessment and Plan (1) Sepsis Current Visit: Yes Status: Resolved Assessment and Plan: 02/23/19 -likely 2/2 CAP -SIRS 3/: temp 103, pulse 127, rr 24, WBC 9.9; MAP 72 -lactic acid 1.9; blood cultures 02/22/19 x2 negative to date -Lingular pneumonia seen on chest CT -3L fluid given. -Azithromycin and ceftriaxone discontinued 02/24/19 -patient febrile overnight. pro calcitonin, viral respiratory panel pending. Patient febrile again this afternoon. Repeat blood cultures 2, lactic acid. MRSA swab, PA/lateral film. Discontinued azithromycin and ceftriaxone. Began Vanco and Zosyn day 1. 02/25/19 -White count has improved. Afebrile. procalcitonin 5.72; viral resp panel + for rhinovirus; blood cultures X2 02/22 and X2 02/24 NGTD; lactic acid trending down; MRSA swab negative; PA/Lat. CXR showed no new findings. DC'd Vanco and Zosyn. -Levofloxacin 750 mg day 1 of 5 (2) Acute kidney injury Current Visit: Yes Status: Acute Assessment and Plan: 02/23/19 -consider 2/2 post renal obstruction vs. intrarenal -Initial creatinine 1.35 -3L fluids given with worsening creatinine -urine output reported as 1.3 L in 24 hours. bladder scan. CPK. 02/24/19 -Bladder scan report pending. Patient states he does not have difficulty urinating however tells us that he had residual urine on scan. CPK trending downward. UA negative for blood or protein. We will hold on further urine st udies for now. 02/25/19: bladder scan report pending. Cr improved. (3) COPD (chronic obstructive pulmonary disease) Current Visit: Yes Status: Suspected Assessment and Plan: 02/23/19 -likely 2/2 former cigarette use -Increased cough, sputum production, dyspnea for the past 3 weeks. No change in color of sputum -As seen on CXR. 02 sats good on room air. -Patient not on home nebulizers or inhalers per chart -Clinically his dyspnea has improved with treatment for sepsis secondary to pneumonia. Should consider optimization of outpatient meds if needed. 02/25/19 -No updates (4) Heart failure Current Visit: Yes Status: Suspected Assessment and Plan: 02/23/19 -likely 2/2 HTN -Per patient history. Last echo July 2018 showed LVEF of 55-60% with mild LV diastolic dysfunction. Review of systems positive for orthopnea. PND at baseline with CECI and noncompliance with CPAP. Denies swelling in lower extremities on home spironolactone regimen. -CAD s/p 3 KY's with 4 stents. -NYHA class likely 1. -ASCVD risk 30.8% using lipid panel from 07/13/18 -Troponin negative -Consider ordering BNP, TSH, hemoglobin A1c, lipid panel -No EKG -CXR read as mild perihilar vascular prominence without overt failure. As well as COPD -Nuclear stress test on 03/24/17 showed gated EF greater than or equal to 70% -ACEi, ASA, statin, spironolactone. Currently no beta jann on home meds -Clinically his dyspnea has improved with treatment for sepsis secondary to pneumonia and because of this I do not suspect heart failure is a component at this point. Should consider optimization of outpatient meds. 02/24/19 -BNP pending for r/o HF component 02/25/19 -BNP 118. Do not suspect heart failure component at this time. (5) Lung mass Current Visit: Yes Status: Acute Assessment and Plan: 02/23/19 -consider 2/2 malignancy -45 years smoker 2ppd. stopped 2 years ago -2.2 cm right upper lobe mass seen on chest CT -Dr. Carey will follow (6) Anemia Current Visit: Yes Status: Acute Assessment and Plan: 02/23/19 -consider 2/2 dilutional -Normocytic -has received 3 L of fluids -Hgb 12.7->10. repeat H&H at 14:00. Continue to monitor for signs of bleed. 02/24/19 -Repeat H&H 10.7> 9.4 this morning. -FOBT pending 02/25/19 -Patient has not moved his bowels. Hemoglobin 10.1. -FOBT pending. (7) Hypomagnesemia Current Visit: Yes Status: Acute Assessment and Plan: 02/23/19 -1.0 initially -1 g raised to 1.1 -2 g given today. continue to monitor 02/24/19 -1.6 02/25/19 -1.5. 1 g given today. (8) Diabetes Current Visit: Yes Status: Acute Assessment and Plan: -chronic -40 basal at night. 10 unit bolus at meals and followed by medium dose sliding scale at meals 02/24/19 -Blood glucose elevated all day. 45 basal. 02/25/19: Glucose Much improved. (9) CECI (obstructive sleep apnea) Current Visit: Yes Status: Chronic Assessment and Plan: (9) CECI (obstructive sleep apnea) Current Visit: Yes Status: Chronic Assessment and Plan: -chronic -noncompliant with CPAP (10) Murmur Current Visit: Yes Status: Suspected Assessment and Plan: -Suspect calcification of aortic valve due to aging and aortic stenosis. -2/6 systolic best over aortic post -July 2018 echo showed mild aortic regurg and no other valvular abnormalities were mentioned. -echo will be considered. I think it more likely that dyspnea on presentation and heart failure type symptoms are 2/2 infectious process at this point DVT Prophylaxis: subq hep - Summary of Assessment and Plan Summary of Assessment and Plan: (1) Sepsis Current Visit: Yes Status: Suspected Assessment and Plan: 02/23/19 -likely 2/2 CAP -SIRS 3/4: temp 103, pulse 127, rr 24, WBC 9.9; MAP 72 -lactic acid 1.9; blood cultures 02/22/19 x2 negative to date -Lingular pneumonia seen on chest CT -3L fluid given. -Azithromycin and ceftriaxone discontinued 02/24/19 -patient febrile overnight. pro calcitonin, viral respiratory panel pending. Patient febrile again this afternoon. Repeat blood cultures 2, lactic acid. MRSA swab, PA/lateral film. Discontinued azithromycin and ceftriaxone. Began Vanco and Zosyn day 1. 02/25/19 -White count has improved. Afebrile. procalcitonin 5.72; viral resp panel + for rhinovirus; blood cultures X2 02/22 and X2 7/18 NGTD; lactic acid trending down; MRSA swab negative; PA/Lat. CXR showed no new findings. DC'd Vanco and Zosyn. -Levofloxacin 750 mg day 1 of 5 (2) Acute kidney injury Current Visit: Yes Status: Acute Assessment and Plan: 02/23/19 -consider 2/2 post renal obstruction vs. intrarenal -Initial creatinine 1.35 -3L fluids given with worsening creatinine -urine output reported as 1.3 L in 24 hours. bladder scan. CPK. 02/24/19 -Bladder scan report pending. Patient states he does not have difficulty urinating however tells us that he had residual urine on scan. CPK trending downward. UA negative for blood or protein. We will hold on further urine studies for now. 02/25/19: bladder scan report pending. Cr improved. (3) COPD (chronic obstructive pulmonary disease) Current Visit: Yes Status: Suspected Assessment and Plan: 02/23/19 -likely 2/2 former cigarette use -Increased cough, sputum production, dyspnea for the past 3 weeks. No change in color of sputum -As seen on CXR. 02 sats good on room air. -Patient not on home nebulizers or inhalers per chart -Clinically his dyspnea has improved with treatment for sepsis secondary to pneumonia. Should consider optimization of outpatient meds if needed. 02/25/19 -No updates (4) Heart failure Current Visit: Yes Status: Suspected Assessment and Plan: -Likely 2/2 HTN -Per patient history. Last echo July 2018 showed LVEF of 55-60% with mild LV diastolic dysfunction. Review of systems positive for orthopnea. PND at baseline with CECI and noncompliance with CPAP. Denies swelling in lower extremities on home spironolactone regimen. -CAD s/p 3 KY's with 4 stents. -NYHA class likely 1. -ASCVD risk 30.8% using lipid panel from 07/13/18 -Troponin negative -Consider ordering BNP, TSH, hemoglobin A1c, lipid panel -No EKG -CXR read as mild perihilar vascular prominence without overt failure. As well as COPD -Nuclear stress test on 03/24/17 showed gated EF greater than or equal to 70% -ACEi, ASA, statin, spironolactone. Currently no beta jann on home meds -Clinically his dyspnea has improved with treatment for sepsis secondary to pneumonia and because of this I do not suspect heart failure is a component at this point. Should consider optimization of outpatient meds. 02/24/19 -BNP pending for r/o HF component 02/25/19 -BNP 118. Do not suspect heart failure component at this time. (5) Lung mass Current Visit: Yes Status: Acute Assessment and Plan: 02/23/19 -consider 2/2 malignancy -45 years smoker 2ppd. stopped 2 years ago -2.2 cm right upper lobe mass seen on chest CT -Dr. Carey will follow (6) Anemia Current Visit: Yes Status: Acute Assessment and Plan: 02/23/19 -consider 2/ dilutional -Normocytic -has received 3 L of fluids -Hgb 12.7->10. repeat H&H at 14:00. Continue to monitor for signs of bleed. 02/24/19 -Repeat H&H 10.7> 9.4 this morning. -FOBT pending 02/25/19 -Patient has not moved his bowels. Hemoglobin 10.1. -FOBT pending. (7) Hypomagnesemia Current Visit: Yes Status: Acute Assessment and Plan: 02/23/19 -1.0 initially -1 g raised to 1.1 -2 g given today. continue to monitor 02/24/19 -1.6 02/25/19 -1.5. 1 g given today. (8) Diabetes Current Visit: Yes Status: Acute Assessment and Plan: -chronic -40 basal at night. 10 unit bolus at meals and followed by medium dose sliding scale at meals 02/24/19 -Blood glucose elevated all day. 45 basal. 02/25/19: Glucose Much improved. (9) CECI (obstructive sleep apnea) Current Visit: Yes Status: Chronic Assessment and Plan: -chronic -noncompliant with CPAP (10) Murmur Current Visit: Yes Status: Suspected Assessment and Plan: -Suspect calcification of aortic valve due to aging and aortic stenosis. -2/6 systolic best over aortic post -July 2018 echo showed mild aortic regurg and no other valvular abnormalities were mentioned. -echo will be considered. I think it more likely that dyspnea on presentation and heart failure type symptoms are 2/2 infectious process at this point - Time Spent with Patient Total time spent is greater than 50% in coordination of care (as documented) at patient's floor/unit and/or counseling patient: Internal Medicine: Result - Labs CBC & Chem 7: 02/25/19 05:04 02/25/19 05:04 Labs: Short CBC 02/25/19 Range/Units 05:04 WBC 8.0 (4.3-11.1) K/mcL Hgb 10.1 L (12.9-16.9) g/dL Hct 32.3 L (37.5-50.1) % Plt Count 169 (140-400) K/mcL Neutrophils # 5.5 (1.6-8.9) K/mcL BMP 02/25/19 05:04 Sodium 142 Potassium 4.2 Chloride 97 L Carbon Dioxide 28 BUN 13 Creatinine 1.24 Glucose 209 H Calcium 9.7 - ABG Interpretation ABG results: PT/INR, D-dimer PT 12.8 Seconds (9.4-12.1) H 02/25/19 05:04 - Impressions Impressions Chest X-Ray 02/24/19 18:07 IMPRESSION: 1. Right upper lobe nodule again seen. 2. Developing left perihilar airspace disease could represent pneumonia. D/ / Sander Phillips MD / Sander Phillips MD Interpreting Provider: Sander Phillips MD <Jose Christie - Last Filed: 02/25/19 16:39> (1) COPD (chronic obstructive pulmonary disease) Qualifiers: COPD type: emphysema Emphysema type: panlobular Qualified Code(s): J43.1 - Panlobular emphysema (3) Pneumonia Qualifiers: Pneumonia type: due to Pneumococcus Laterality: left Lung location: unspecified part of lung Qualified Code(s): J13 - Pneumonia due to Streptococcus pneumoniae (6) CAD (coronary artery disease) Qualifiers: Coronary Disease-Associated Artery/Lesion type: [place] artery [place] vs. transplanted heart: knik heart Associated angina: without angina Qualified Code(s): I25.10 - Atherosclerotic heart disease of [place] coronary artery without angina pectoris (7) Diabetes Qualifiers: Diabetes mellitus type: type 2 Diabetes mellitus therapist insulin use: with longterm use Diabetes mellitus complication status: without complication Qualified Code(s): E11.9 - Type 2 diabetes mellitus without complications; Z79.4 - assisted (current) use of insulin (8) Sepsis Qualifiers: Sepsis type: Pneumococcus Qualified Code(s): A40.3 - Sepsis due to Streptococcus pneumoniae (10) Constipation Qualifiers: Constipation type: slow transit constipation Qualified Code(s): K59.01 - Slow transit constipation <Jacky Gonzalez - Last Filed: 02/25/19 19:07> (1) Sepsis Qualifiers: Sepsis type: Pneumococcus Qualified Code(s): A40.3 - Sepsis due to Streptococcus pneumoniae (3) COPD (chronic obstructive pulmonary disease) Qualifiers: COPD type: emphysema Emphysema type: panlobular Qualified Code(s): J43.1 - Panlobular emphysema (8) Diabetes Qualifiers: Diabetes mellitus type: type 2 Diabetes mellitus longterm insulin use: with therapist use Diabetes mellitus complication status: without complication Qual ified Code(s): E11.9 - Type 2 diabetes mellitus without complications; Z79.4 - assisted (current) use of insulin
[2019-02-25] MEDS: levoFLOXacin 750 MG TABLET PO SCH (13:29)
[2019-02-25] MEDS ORDERED: Aminoglycoside Consult 1 EACH MC ONE (16:18)
[2019-02-25] MEDS: Nystatin SUSP 5 ML UD.LIQ BC SCH (20:56)
[2019-02-25] MEDS: Insulin DETEMIR 100 UNIT/ML X5UNITS SQ SCH (21:49)
--- NOTE | 2019-02-25 23:12 | Electrocardiograph Report ---
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
[2019-02-26] MEDS: *HR* Heparin 5,000 UNIT/ML VIAL SQ SCH (04:57)
--- NOTE | 2019-02-26 07:38 | Discharge Summary ---
<Jose Christie - Last Filed: 02/26/19 14:04> Orders not resulted at time of discharge: Pending orders 02/22/19 16:06 Culture,Blood [BC] Stat 02/24/19 18:07 MRSA Surveillance Screen [[facility]] Routine 02/24/19 18:41 Culture,Blood [BC] Routine Date of Encounter: 02/26/19 - Discharge Diagnosis (1) COPD (chronic obstructive pulmonary disease) Priority: Secondary Status: Suspected Qualifiers: COPD type: emphysema Emphysema type: panlobular Qualified Code(s): J43.1 - Panlobular emphysema (2) CECI (obstructive sleep apnea) Priority: Secondary Status: Chronic (3) Pneumonia Priority: Primary Status: Suspected Qualifiers: Pneumonia type: due to Pneumococcus Laterality: left Lung location: unspecified part of lung Qualified Code(s): J13 - Pneumonia due to Streptococcus pneumoniae (4) Lung mass Priority: Secondary Status: Acute (5) History of tobacco abuse Priority: Secondary Status: Chronic (6) CAD (coronary artery disease) Priority: Secondary Status: Chronic Qualifiers: Coronary Disease-Associated Artery/Lesion type: [place] artery [place] vs. transplanted heart: [place] heart Associated angina: without angina Qualified Code(s): I25.10 - Atherosclerotic heart disease of [place] coronary artery without angina pectoris (7) Diabetes Priority: Secondary Status: Chronic Qualifiers: Diabetes mellitus type: type 2 Diabetes mellitus manager intermediate insulin use: with manager intermediate use Diabetes mellitus complication status: with hyperglycemia Qualified Code(s): E11.65 - Type 2 diabetes mellitus with hyperglycemia; Z79.4 - shelter (current) use of insulin (8) Sepsis Priority: Secondary Status: Resolved Qualifiers: Sepsis type: Pneumococcus Qualified Code(s): A40.3 - Sepsis due to Streptococcus pneumoniae (9) Hypomagnesemia Priority: Secondary Status: Acute (10) Constipation Priority: Secondary Status: Acute Qualifiers: Constipation type: slow transit constipation Qualified Code(s): K59.01 - Slow transit constipation (11) Anemia Priority: Secondary Status: Suspected Qualifiers: Anemia type: iron deficiency Iron deficiency anemia type: chronic blood loss Qualified Code(s): D50.0 - Iron deficiency anemia secondary to blood loss (chronic) Hospital course: Mr. Schofield is a 63 year old male - Time Spent with Patient Total time spent providing and/or coordinating discharge services: - Discharge Medications Prescriptions: New RX: levoFLOXacin [Levaquin] 750 mg PO DAILY 3 Days #3 tablet RX: Magnesium 400 mg PO DAILY 30 Days #30 tablet Nystatin [Nystatin Suspension] 500,000 units PO QID #120 ml Continued RX: Metformin HCl [Glucophage] 1,000 mg PO BID RX: Insulin ASPART [Novolog Flexpen] 25 unit SQ TIDAC RX: Rosuvastatin [Crestor] 20 mg PO HS RX: Clopidogrel [Plavix] 75 mg PO DAILY RX: Aspirin Enteric Coated [Aspirin EC] 81 mg PO DAILY RX: Fluticasone Propionate Nasal [Flonase] 50 mcg NS DAILY PRN PRN Reason: Allergy Symptoms RX: Allopurinol [Zyloprim 300 MG] 300 mg PO DAILY RX: Chlorthalidone 50 mg PO DAILY RX: Gabapentin 800 mg PO TID RX: Insulin Glargine,Hum.rec.anlog [Basaglar Kwikpen U-100] 80 unit SQ HS RX: Lisinopril [Zestril] 40 mg PO DAILY RX: Pioglitazone [Actos] 45 mg PO DAILY RX: Plecanatide [Trulance] 3 mg PO DAILY RX: Spironolactone [Aldactone] 50 mg PO DAILY Home Medications: RX: Insulin ASPART [Novolog Flexpen] 25 unit SQ TIDAC 09/02/15 [History] RX: Metformin HCl [Glucophage] 1,000 mg PO BID 09/02/15 [History] RX: Aspirin Enteric Coated [Aspirin EC] 81 mg PO DAILY 03/23/17 [History] RX: Clopidogrel [Plavix] 75 mg PO DAILY 03/23/17 [History] RX: Fluticasone Propionate Nasal [Flonase] 50 mcg NS DAILY PRN 03/23/17 [History] RX: Rosuvastatin [Crestor] 20 mg PO HS 03/23/17 [History] RX: Allopurinol [Zyloprim 300 MG] 300 mg PO DAILY 02/22/19 [History] RX: Chlorthalidone 50 mg PO DAILY 02/22/19 [History] RX: Gabapentin 800 mg PO TID 02/22/19 [History] RX: Insulin Glargine,Hum.rec.anlog [Basaglar Kwikpen U-100] 80 unit SQ HS 02/22/19 [History] RX: Lisinopril [Zestril] 40 mg PO DAILY 02/22/19 [History] RX: Pioglitazone [Actos] 45 mg PO DAILY 02/22/19 [History] RX: Plecanatide [Trulance] 3 mg PO DAILY 02/22/19 [History] RX: Spironolactone [Aldactone] 50 mg PO DAILY 02/22/19 [History] Nystatin [Nystatin Suspension] 500,000 units PO QID #120 ml 02/26/19 [Rx] RX: Magnesium 400 mg PO DAILY 30 Days #30 tablet 02/26/19 [Rx] RX: levoFLOXacin [Levaquin] 750 mg PO DAILY 3 Days #3 tablet 02/26/19 [Rx] Allergies/Adverse Reactions: Allergy/AdvReac Type Severity Reaction Status Date / Time No Known Allergies Allergy Verified 10/09/18 10:02 Date of admission: 02/23/19 03:06 Primary care physician: Denisha Lozoya CNP Consults: 02/22/19 19:02 Consult to Pulmonology [CONS] Stat Consulting Provider: [facility] Reason for Consult: pneumonia, SIRS; mass suspicious for malignancy Call Completed: No - Constitutional Vitals: Temp Pulse Resp BP Pulse Ox 98.0 F 68 12 117/65 92 02/26/19 08:03 02/26/19 08:03 02/26/19 08:03 02/26/19 08:03 02/26/19 08:03 - Patient Status Disposition: Home, Self-Care Condition: Fair - Discharge Instructions Instructions: Nystatin (By mouth), Levofloxacin (By mouth), Magnesium (By mouth), Bronchiolitis (DC) Follow Up With: Denisha Lozoya CNP [Primary Care Provider] - Wild Carey MD [Partnered Physician] - Additional Instructions: -finish your antibiotics -follow up with Dr. Carey -Follow up with your primary care doctor 5-7 days -Thank you - Attending Attestation I examined this patient and my medical decision-making was reviewed with the Resident Physician on 02/26/19. I agree with the documented findings, di sposition and treatment plan as described except to the extent set forth below. Mr Schofield has been admitted for pneumonia and rhinovirus infection. He has tolerated IV abx and has steadily improved. He is more anemic than baseline stool is guiac positive. No prior hx. H/H stable therefore we have elected to have him pursue outpatient work up when pneumonia resolved. He is now afebrile and ready for discharge home. Exam: Alert Comfortable. Mucus membranes dry. Heart not tachy. NC. Neck supple. Lungs with few rales on L. No wheeze or rhonchi. Abd soft. No edema. Moves all extremities. No rash Plan: D/C home today. Outpatient work up of anemia. 3 more days of Levaquin. D/C time 34min <Jacky Gonzalez - Last Filed: 02/26/19 21:55> - NOTES TO OUTPATIENT PROVIDER Notes to Outpatient Provider: Patient was treated for sepsis secondary to CAP and JANETH. He was treated with 4 days of adequate antibiotic coverage and will be discharged with 3 more days of Levaquin. A chest CT showed new 2.2 cm right upper lobe lung mass. Dr. Carey will follow outpatient. Patient's magnesium was low. He will be discharged on oral mag. Patient was heard to have 2/6 systolic murmur best heard over the aortic post and informed of this -his echo in July showed mild aortic regurg without any other abnormalities mentioned. His hemoglobin is stable but his FOBT positive. Please follow up on outpatient basis for both of these thank you. Orders not resulted at time of discharge: Pending orders 02/22/19 16:06 Culture,Blood [BC] Stat 02/24/19 18:07 MRSA Surveillance Screen [[facility]] Routine 02/24/19 18:41 Culture,Blood [BC] Routine 02/26/19 04:00 BMP [Basic Metabolic Panel] AM 0400 Complete Blood Count [HEME] AM 0400 Magnesium AM 0400 Date of Encounter: 02/26/19 Time of Encounter: 08:00 - Discharge Diagnosis (1) Sepsis Priority: Primary Status: Resolved Qualifiers: Sepsis type: Pneumococcus Qualified Code(s): A40.3 - Sepsis due to Streptococcus pneumoniae (2) Acute kidney injury Priority: Secondary Status: Acute (3) COPD (chronic obstructive pulmonary disease) Priority: Secondary Status: Suspected Qualifiers: COPD type: emphysema Emphysema type: panlobular Qualified Code(s): J43.1 - Panlobular emphysema (4) Heart failure Priority: Secondary Status: Suspected (5) Lung mass Priority: Secondary Status: Acute (6) Anemia Priority: Secondary Status: Acute (7) Hypomagnesemia Priority: Secondary Status: Acute (8) Diabetes Priority: Secondary Status: Chronic Qualifiers: Diabetes mellitus type: type 2 Diabetes mellitus care home insulin use: with care home use Diabetes mellitus complication status: with hyperglycemia Qualified Code(s): E11.65 - Type 2 diabetes mellitus with hyperglycemia; Z79.4 - shelter (current) use of insulin (9) CECI (obstructive sleep apnea) Priority: Secondary Status: Chronic (10) Murmur Priority: Secondary Status: Suspected Hospital course: Mr. Schofield is a 63 year old male who was treated for sepsis secondary to CAP and JANETH. He was treated with 4 days of adequate antibiotic coverage and will be discharged with 3 more days of Levaquin. A chest CT showed new 2.2 cm right upper lobe lung mass. Dr. Carey will follow outpatient. Patient's magnesium was low. He will be discharged on oral mag. Patient was heard to have 2/6 systolic murmur best heard over the aortic post and informed of this -his echo in July showed mild aortic regurg without any other abnormalities mentioned. His hemoglobin is stable but his FOBT positive. Please follow up on outpatient basis for both of these thank you. - Time Spent with Patient Total time spent providing and/or coordinating discharge services: Date of admission: 02/23/19 03:06 Primary care physician: Denisha Lozoya CNP Consults: 02/22/19 19:02 Consult to Pulmonology [CONS] Stat Consulting Provider: [facility] Reason for Consult: pneumonia, SIRS; mass suspicious for malignancy Call Completed: No - Constitutional Vitals: Temp Pulse Resp BP Pulse Ox 98.4 F 84 15 129/64 92 02/26/19 04:50 02/26/19 04:50 02/26/19 04:50 02/26/19 04:50 02/26/19 04:50 Exam: Gen.: Middle-aged male. No acute distress Eyes: Moist. Slightly hyperemic Skin: Good turgor Cardiac: Regular rate and rhythm. 2/6 systolic murmur best heard over aortic post Respiratory: Went basilar crackles. CTA otherwise Extremities: 1+ bilateral edema to mid shins bilaterally. Capillary refill less than 2 seconds upper extremities bilaterally. Neuro: Eyes able to track. No obvious tremor Psych: Appropriate behavior. Answers questions appropriately - Patient Status Functional capacity at discharge: independent ambulation Overall status at discharge: patient is progressing back to baseline - Diet and Activity Activity: increase activity as tolerated Diet: diabetic diet, low fat, low cholesterol, low salt diet
[2019-02-26 07:54] LABS: Basophils # 0.1 K/mcL (0.0-0.2); Basophils % 0.8 %; Eosinophils # 0.4 K/mcL (0.0-0.6); Eosinophils % 5.1 %; Hematocrit 34.7 % (37.5-50.1); Immature Granulocytes % 1.2 % (0-4); Lymphocytes # 1.5 K/mcL (0.6-4.6); Lymphocytes % 20.3 %; Mean Corpuscular HGB Conc 31.7 g/dL (31.6-35.5); Mean Corpuscular Hemoglobin 28.4 pg (28.0-33.3); Mean Corpuscular Volume 89.4 fL (83.0-100.0); Mean Platelet Volume 11.8 fL (9.4-12.4); Monocytes # 0.6 K/mcL (0.0-1.3); Monocytes % 7.6 %; Neutrophils # 4.8 K/mcL (1.6-8.9); Platelet Count 204 K/mcL (140-400); Red Blood Count 3.88 M/mcL (4.19-5.50); Red Cell Distribution Width 14.1 % (11.5-14.5); White Blood Count 7.4 K/mcL (4.3-11.1)
[2019-02-26 08:08] LABS: BUN/Creatinine Ratio 11 (6-26); Blood Urea Nitrogen 12 mg/dL (8-23); Calcium 10.1 mg/dL (8.6-10.3); Carbon Dioxide 26 mEq/L (23-29); Chloride 99 mEq/L (98-107); Glucose 202 mg/dL (70-105); Osmolality,Calculated 294 (280-300); Potassium 4.2 mEq/L (3.5-5.1); Sodium 139 mEq/L (136-145); eGFR For African Americans > 60 (> 60); eGFR For Non-African Americans > 60 (> 60)
[2019-02-26] MEDS: Lisinopril 20 MG TABLET PO SCH (08:51)
[2019-02-26] MEDS: levoFLOXacin 750 MG TABLET PO SCH (08:51)
[2019-02-26] MEDS: Aspirin Enteric Coated 81 MG Tablet PO SCH (08:51)
[2019-02-26] MEDS: Insulin LISPRO 300 UNITS/3 ML VIAL SQ SCH ×4 (08:51→12:08)
[2019-02-26] MEDS: Nystatin SUSP 5 ML UD.LIQ BC SCH ×2 (08:52→12:07)
[2019-02-26] MEDS: Gabapentin 400 MG CAPSULE PO SCH ×2 (08:52→15:45)
[2019-02-26] MEDS ORDERED: Sennosides/Docusate Sodium TABLET PO ONE (11:36)
[2019-02-26 16:12] VITALS: BP 122/72
== END 2019-02-26 16:19 | disposition home or self-care (01) | DRG 720 ==
LOC: EMEROOARM 15:39 → 2NENU 15:39 → SUATTDRO 02-23 03:06
PROVIDERS: ADMIT Internal Medicine; ATTEND Internal Medicine

== ENCOUNTER 2020-02-17 21:17 | Observation (INO) ==
[2020-02-18] MEDS ORDERED: Naloxone 0.4 MG/ML INJ IVP PRN (01:55)
[2020-02-18] MEDS ORDERED: *HR* Dextrose 50 % in Water (Vial) 50 ML VIAL IVP PRN (01:59)
[2020-02-18] MEDS ORDERED: Dextrose Gel 15 GM/37.5 ML TUBE PO PRN ×2 (01:59)
[2020-02-18] MEDS ORDERED: D5% in Water 1,000 ML IVC PRN (01:59)
[2020-02-18] MEDS ORDERED: 0.9 % Sodium Chloride 1,000 ML IVC SCH (02:00)
[2020-02-18 03:10] LABS: BUN/Creatinine Ratio 19 (6-26); Blood Urea Nitrogen 24 mg/dL (8-23); Calcium 9.7 mg/dL (8.6-10.3); Carbon Dioxide 19 mEq/L (23-29); Chloride 110 mEq/L (98-107); Glucose 214 mg/dL (70-105); Osmolality,Calculated 296 (280-300); Potassium 5.3 mEq/L (3.5-5.1); Sodium 138 mEq/L (136-145); eGFR For African Americans > 60 (> 60); eGFR For Non-African Americans 58 (> 60)
[2020-02-18 03:11] LABS: Magnesium 1.2 mg/dL (1.6-2.6); Phosphorous 3.5 mg/dL (2.7-4.5)
[2020-02-18 03:13] LABS: Troponin I < 0.03 ng/mL (< 0.04)
[2020-02-18 07:15] VITALS: BP 148/68
[2020-02-18] MEDS ORDERED: Insulin LISPRO 300 UNITS/3 ML VIAL SQ SCH ×2 (07:30→21:00)
[2020-02-18] MEDS ORDERED: Loratadine 10 MG TABLET PO PRN (07:44)
[2020-02-18] MEDS ORDERED: Fluticasone Propionate Nasal 50 MCG/SPRAY BOTTLE NS PRN (07:44)
[2020-02-18] MEDS ORDERED: Aspirin Enteric Coated 81 MG Tablet PO SCH (09:00)
[2020-02-18] MEDS ORDERED: Cyanocobalamin (B-12) 1,000 MCG TABLET PO SCH (09:00)
[2020-02-18] MEDS ORDERED: amLODIPine 5 MG TABLET PO SCH (09:00)
[2020-02-18] MEDS ORDERED: Gabapentin 400 MG CAPSULE PO SCH (09:00)
[2020-02-18] MEDS ORDERED: allopurinoL 300 MG TABLET PO SCH (09:00)
[2020-02-18] MEDS ORDERED: Insulin DETEMIR 100 UNIT/ML X5UNITS SQ SCH (09:00)
== END 2020-02-18 11:45 | disposition home or self-care (01) ==
LOC: 3BNU → SUATTDRO 02-18 01:47
PROVIDERS: ADMIT Family Medicine; ATTEND Internal Medicine

== ENCOUNTER 2020-07-31 10:03 | Inpatient (IN) ==
[2020-07-31] MEDS ORDERED: *HR* Heparin 5,000 UNIT/ML VIAL IVP ONE (10:09)
[2020-07-31] MEDS ORDERED: *HR* Heparin 5,000 UNIT/ML VIAL IVP PRN ×2 (10:09)
[2020-07-31] MEDS ORDERED: 0.9 % Sodium Chloride 1,000 ML ONE (10:09)
[2020-07-31] MEDS ORDERED: ISOVUE-370 200 ML INFUS..BTL ONE (10:10)
[2020-07-31] MEDS ORDERED: *HR* Heparin 10,000 UNIT/10 ML VIAL ONE (10:10)
[2020-07-31] MEDS ORDERED: Heparin 1,000 UNITS/500 mL 500 ML ONE (10:10)
[2020-07-31] MEDS ORDERED: *HR* Ticagrelor 90 MG TABLET PO ONE (10:11)
[2020-07-31] MEDS ORDERED: *HR* Midazolam HCl 2 MG/2 ML VIAL ONE (10:12)
[2020-07-31] MEDS ORDERED: *HR* Ticagrelor 90 MG TABLET ONE (10:13)
[2020-07-31] MEDS ORDERED: Heparin 25,000UNIT/250ML 1/2NS 25,000 UNIT/250 ML IV.SOLN IVC SCH (10:15)
[2020-07-31 10:23] LABS: Basophils % 0.1 %; Eosinophils % 0.1 %; Hematocrit 45.3 % (37.5-50.1); Hemoglobin 15.1 g/dL (12.9-16.9); Immature Granulocytes % 0.5 % (0-4); Lymphocytes % 8.7 %; Mean Corpuscular HGB Conc 33.3 g/dL (31.6-35.5); Mean Corpuscular Volume 86.9 fL (83.0-100.0); Monocytes # 0.6 K/mcL (0.0-1.3); Monocytes % 5.5 %; Neutrophils # 9.5 K/mcL (1.6-8.9); Platelet Count 212 K/mcL (140-400); Red Blood Count 5.21 M/mcL (4.19-5.50); Red Cell Distribution Width 13.7 % (11.5-14.5); Segmented Neutrophils % 85.1 %; White Blood Count 11.2 K/mcL (4.3-11.1)
[2020-07-31 10:43] LABS: BUN/Creatinine Ratio 22 (6-26); Blood Urea Nitrogen 24 mg/dL (8-23); Calcium 10.4 mg/dL (8.6-10.3); Carbon Dioxide 23 mEq/L (23-29); Chloride 100 mEq/L (98-107); Glucose 362 mg/dL (70-105); Osmolality,Calculated 297 (280-300); Potassium 4.3 mEq/L (3.5-5.1); Sodium 134 mEq/L (136-145); eGFR For African Americans > 60 (> 60); eGFR For Non-African Americans > 60 (> 60)
[2020-07-31 10:45] LABS: Troponin I < 0.03 ng/mL (< 0.04)
[2020-07-31] MEDS ORDERED: Nitroglycerin 0.4 MG TAB.SUBL SL PRN (11:00)
[2020-07-31] MEDS ORDERED: Acetaminophen 325 MG TABLET PO PRN (11:00)
[2020-07-31] MEDS ORDERED: D5% in Water 1,000 ML IVC PRN ×2 (11:28→12:14)
[2020-07-31] MEDS ORDERED: *HR* Dextrose 50 % in Water (Vial) 50 ML VIAL IVP PRN ×2 (11:28→12:14)
[2020-07-31] MEDS ORDERED: Dextrose Gel 15 GM/37.5 ML TUBE PO PRN ×4 (11:28→12:14)
[2020-07-31] MEDS: Insulin LISPRO 300 UNITS/3 ML VIAL SUBQ SCH ×5 (11:52→20:52)
[2020-07-31] MEDS: Insulin DETEMIR 100 UNIT/ML X5UNITS SUBQ SCH ×2 (11:52→20:52)
[2020-07-31] MEDS: *HR* Pioglitazone 45 MG TABLET PO SCH (11:52)
[2020-07-31 13:31] LABS: Estimated Average Glucose 260 mg/dl; Hemoglobin A1C 10.7 %
[2020-07-31] MEDS ORDERED: Fluticasone Propionate Nasal 50 MCG/SPRAY BOTTLE NS PRN (13:34)
[2020-07-31] MEDS: amLODIPine 5 MG TABLET PO SCH (14:11)
[2020-07-31] MEDS ORDERED: Insulin LISPRO 300 UNITS/3 ML VIAL SUBQ ONE (18:20)
[2020-07-31] MEDS: Gabapentin 400 MG CAPSULE PO SCH (20:50)
[2020-07-31] MEDS: *HR* Ticagrelor 90 MG TABLET PO SCH (20:55)
[2020-07-31] MEDS: Aspirin 81 MG TAB.CHEW PO SCH (22:22)
[2020-08-01 02:51] LABS: Basophils % 0.2 %; Eosinophils # 0.1 K/mcL (0.0-0.6); Eosinophils % 0.5 %; Hematocrit 42.4 % (37.5-50.1); Immature Granulocytes % 0.4 % (0-4); Lymphocytes # 2.1 K/mcL (0.6-4.6); Lymphocytes % 16.7 %; Mean Corpuscular Hemoglobin 28.7 pg (28.0-33.3); Mean Corpuscular Volume 86.9 fL (83.0-100.0); Mean Platelet Volume 12.5 fL (9.4-12.4); Monocytes # 0.9 K/mcL (0.0-1.3); Monocytes % 6.9 %; Neutrophils # 9.3 K/mcL (1.6-8.9); Platelet Count 240 K/mcL (140-400); Red Blood Count 4.88 M/mcL (4.19-5.50); Red Cell Distribution Width 14.1 % (11.5-14.5); Segmented Neutrophils % 75.3 %; White Blood Count 12.3 K/mcL (4.3-11.1)
[2020-08-01 03:59] LABS: BUN/Creatinine Ratio 25 (6-26); Blood Urea Nitrogen 24 mg/dL (8-23); Carbon Dioxide 21 mEq/L (23-29); Chloride 106 mEq/L (98-107); Glucose 123 mg/dL (70-105); Osmolality,Calculated 289 (280-300); Sodium 137 mEq/L (136-145); Troponin I 0.06 ng/mL (< 0.04); eGFR For African Americans > 60 (> 60); eGFR For Non-African Americans > 60 (> 60)
[2020-08-01] MEDS ORDERED: Insulin LISPRO 300 UNITS/3 ML VIAL SUBQ ONE ×3 (07:51→18:02)
[2020-08-01] MEDS: Insulin LISPRO 300 UNITS/3 ML VIAL SUBQ SCH ×7 (07:53→21:47)
[2020-08-01] MEDS: Insulin DETEMIR 100 UNIT/ML X5UNITS SUBQ SCH (08:18)
[2020-08-01] MEDS: *HR* Pioglitazone 45 MG TABLET PO SCH ×2 (08:19→08:21)
[2020-08-01] MEDS: Cyanocobalamin (B-12) 1,000 MCG TABLET PO SCH (08:20)
[2020-08-01] MEDS: amLODIPine 5 MG TABLET PO SCH (08:21)
[2020-08-01] MEDS: allopurinoL 300 MG TABLET PO SCH (08:21)
[2020-08-01] MEDS: Gabapentin 400 MG CAPSULE PO SCH ×2 (08:21→19:56)
[2020-08-01] MEDS ORDERED: Perflutren Lipid Microsphere 1.3 ML in 0.9 % Sodium Chloride 8.7 ML IVP PRN (08:22)
[2020-08-01] MEDS: *HR* Ticagrelor 90 MG TABLET PO SCH ×2 (08:22→19:56)
[2020-08-01] MEDS: Aspirin 81 MG TAB.CHEW PO SCH (08:33)
[2020-08-01] MEDS ORDERED: Aspirin 81 MG TAB.CHEW PO SCH (09:00)
[2020-08-01] MEDS: *HR* Heparin 5,000 UNIT/ML VIAL SQ SCH ×2 (11:44→17:45)
[2020-08-01] MEDS: Isosorbide MONOnitrate (24 HR) 30 MG TAB.ER.24H PO SCH (11:51)
[2020-08-01] MEDS ORDERED: Colchicine 0.6 MG TABLET PO ONE (14:50)
[2020-08-01] MEDS ORDERED: Insulin LISPRO 300 UNITS/3 ML VIAL SUBQ STA (16:43)
[2020-08-01] MEDS ORDERED: Colchicine 0.6 MG TABLET PO SCH (17:00)
[2020-08-01] MEDS: Colchicine 0.6 MG TABLET PO SCH (19:55)
[2020-08-02] MEDS: *HR* Heparin 5,000 UNIT/ML VIAL SQ SCH (05:34)
[2020-08-02] MEDS: Aspirin 81 MG TAB.CHEW PO SCH (09:45)
[2020-08-02] MEDS: Insulin LISPRO 300 UNITS/3 ML VIAL SUBQ SCH ×2 (09:45)
[2020-08-02] MEDS: Colchicine 0.6 MG TABLET PO SCH (09:47)
[2020-08-02] MEDS: Gabapentin 400 MG CAPSULE PO SCH (09:47)
[2020-08-02] MEDS: Cyanocobalamin (B-12) 1,000 MCG TABLET PO SCH (09:47)
[2020-08-02] MEDS: amLODIPine 5 MG TABLET PO SCH (09:48)
[2020-08-02] MEDS: *HR* Ticagrelor 90 MG TABLET PO SCH (09:48)
[2020-08-02] MEDS: Isosorbide MONOnitrate (24 HR) 30 MG TAB.ER.24H PO SCH (09:48)
[2020-08-02] MEDS: allopurinoL 300 MG TABLET PO SCH (09:49)
[2020-08-02 09:57] VITALS: BP 135/75
== END 2020-08-02 11:12 | disposition home or self-care (01) | DRG 174 ==
LOC: EMEROOARM 10:03 → ICNU 10:26 → 2NNU 10:52
PROVIDERS: ADMIT Internal Medicine Cardiovascular Disease; ATTEND Internal Medicine Cardiovascular Disease

== ENCOUNTER 2021-10-21 23:41 | Observation (INO) ==
[2021-10-22 00:06] LABS: Hematocrit 44.9 % (37.5-50.1); Hemoglobin 15.4 g/dL (12.9-16.9); Mean Corpuscular HGB Conc 34.3 g/dL (31.6-35.5); Mean Corpuscular Hemoglobin 30.4 pg (28.0-33.3); Mean Corpuscular Volume 88.6 fL (83.0-100.0); Mean Platelet Volume 11.2 fL (9.4-12.4); Platelet Count 208 K/mcL (140-400); Red Blood Count 5.07 M/mcL (4.19-5.50); Red Cell Distribution Width 14.2 % (11.5-14.5); White Blood Count 7.7 K/mcL (4.3-11.1)
[2021-10-22 00:13] LABS: Prothrombin Time 11.2 Seconds (9.4-12.1)
[2021-10-22 00:16] LABS: Activated Partial Thrombo Time 36.4 Seconds (26.0-36.0)
[2021-10-22 00:22] LABS: BUN/Creatinine Ratio 21 (6-26); Blood Urea Nitrogen 25 mg/dL (8-23); Calcium 9.4 mg/dL (8.6-10.3); Carbon Dioxide 23 mEq/L (23-29); Chloride 104 mEq/L (98-107); Ethanol < 10 mg/dL (Less than 10); Glucose 169 mg/dL (70-105); Osmolality,Calculated 292 (280-300); Potassium 3.8 mEq/L (3.5-5.1); Sodium 137 mEq/L (136-145); eGFR For African Americans > 60 (> 60); eGFR For Non-African Americans > 60 (> 60)
[2021-10-22] MEDS ORDERED: Isovue-370 500 ML BOTTLE IVP ONE (00:22)
[2021-10-22 00:25] LABS: Troponin I < 0.03 ng/mL (< 0.04)
[2021-10-22 01:28] LABS: Bilirubin,Urine Negative (Negative); Blood,Urine Negative (Negative); Clarity,Urine Clear (Clear); Color,Urine Light-Yellow (Yellow); Glucose,Urine (UA) >=1000 mg/dL (Normal); Ketones,Urine Negative (Negative); Leukocyte Esterase,Urine Negative (Negative); Mucus,Urine Few per lpf (None-Few); Nitrite,Urine Negative (Negative); PH,Urine 5.5 pH Units (5.0-8.0); Protein,Urine Trace mg/dL (Neg-Trace); RBC,Urine 0-3 per hpf (0-3); Specific Gravity,Urine > 1.030 (1.010-1.025); Squamous Epithelial Cell,Urine Few per hpf (None-Few); Urobilinogen,Urine Normal (Normal); WBC,Urine 0-3 per hpf (0-3)
[2021-10-22 01:46] LABS: Amphetamine Screen,Urine Negative ng/mL (Cutoff=1000); Barbiturate Screen,Urine Negative ng/mL (Cutoff=200); Benzodiazepines Screen,Urine Negative ng/mL (Cutoff=200); Cannabinoid Screen,Urine Negative ng/mL (Cutoff = 50); Cocaine Screen,Urine Negative ng/mL (Cutoff= 300); Opiate Screen,Urine Positive ng/mL (Cutoff=300); Phencyclidine Screen,Urine Negative ng/mL (Cutoff=25)
[2021-10-22 02:15] LABS: Influenza A PCR Negative (Negative); Influenza B PCR Negative (Negative); Resp. Syncytial Virus PCR Negative (Negative)
[2021-10-22 02:18] LABS: SARS-CoV-2 by PCR (In House) Positive (Negative)
[2021-10-22] MEDS ORDERED: Ondansetron 4 MG/2 ML VIAL IVP PRN (03:13)
[2021-10-22] MEDS ORDERED: *HR* HYDROcodone/Acet 5/325 mg TABLET PO PRN (03:13)
[2021-10-22] MEDS ORDERED: Naloxone 0.4 MG/ML INJ IVP PRN (03:13)
[2021-10-22] MEDS ORDERED: Melatonin 3 MG TABLET PO PRN (03:13)
[2021-10-22] MEDS ORDERED: Acetaminophen 325 MG TABLET PO PRN (03:13)
[2021-10-22] MEDS ORDERED: *HR* Dextrose 50 % in Water (Syg) 50 ML SYRINGE IVP PRN (03:24)
[2021-10-22] MEDS ORDERED: Dextrose 4 GM Chewable Tablets PO PRN ×2 (03:24)
[2021-10-22] MEDS ORDERED: D5% in Water 1,000 ML IVC PRN (03:24)
[2021-10-22] MEDS ORDERED: Perflutren Lipid Microsphere 1.3 ML in 0.9 % Sodium Chloride 8.7 ML IVP PRN (03:28)
[2021-10-22] MEDS ORDERED: Ipratropium 1 PUFF INHALER IH PRN (04:00)
[2021-10-22 05:00] LABS: Hematocrit 40.9 % (37.5-50.1); Mean Corpuscular HGB Conc 33.3 g/dL (31.6-35.5); Mean Corpuscular Hemoglobin 30.2 pg (28.0-33.3); Mean Corpuscular Volume 90.7 fL (83.0-100.0); Mean Platelet Volume 11.6 fL (9.4-12.4); Platelet Count 198 K/mcL (140-400); Red Blood Count 4.51 M/mcL (4.19-5.50); Red Cell Distribution Width 14.4 % (11.5-14.5); White Blood Count 6.6 K/mcL (4.3-11.1)
[2021-10-22 05:01] LABS: Hemoglobin 13.6 g/dL (12.9-16.9)
[2021-10-22 05:06] LABS: Estimated Average Glucose 246 mg/dl; Hemoglobin A1C 10.2 %
[2021-10-22 05:10] LABS: Prothrombin Time 11.2 Seconds (9.4-12.1)
[2021-10-22 05:13] LABS: Activated Partial Thrombo Time 35.3 Seconds (26.0-36.0)
[2021-10-22 05:21] LABS: BUN/Creatinine Ratio 22 (6-26); Blood Urea Nitrogen 24 mg/dL (8-23); Calcium 8.7 mg/dL (8.6-10.3); Carbon Dioxide 23 mEq/L (23-29); Chloride 101 mEq/L (98-107); Chol/HDL Ratio 5.1 (0-4.9); Cholesterol 211 mg/dL (< 200); Glucose 365 mg/dL (70-105); HDL Cholesterol 41 mg/dL (40-59); Magnesium 1.8 mg/dL (1.6-2.6); Osmolality,Calculated 295 (280-300); Potassium 4.2 mEq/L (3.5-5.1); Sodium 133 mEq/L (136-145); Triglycerides 423 mg/dL (< 150); eGFR For African Americans > 60 (> 60); eGFR For Non-African Americans > 60 (> 60)
[2021-10-22] MEDS: Insulin LISPRO 300 UNITS/3 ML VIAL SUBQ SCH ×2 (08:59→11:30)
[2021-10-22] MEDS ORDERED: Aspirin Enteric Coated 81 MG Tablet PO SCH (09:00)
[2021-10-22] MEDS ORDERED: Chlorhexidine Rinse 15 ML MOUTHWASH MM SCH (09:00)
[2021-10-22] MEDS ORDERED: *HR* Ticagrelor 90 MG TABLET PO SCH (09:00)
[2021-10-22] MEDS ORDERED: Insulin DETEMIR 100 UNIT/ML X5UNITS SUBQ SCH (09:00)
[2021-10-22] MEDS ORDERED: Multivit/Ca/Min/Fe/FA 1 TAB TABLET PO SCH (09:00)
[2021-10-22 09:58] LABS: Folate 14.4 ng/mL (3.0-16.0)
[2021-10-22 11:09] VITALS: BP 144/77; PULSE 79; TEMP 97.6; O2SAT 95
[2021-10-23] MEDS ORDERED: *HR* Enoxaparin 40 MG/0.4 ML SYRINGE SQ SCH (06:00)
[2021-10-23] MEDS ORDERED: Cyanocobalamin (B-12) 1,000 MCG TABLET PO SCH (09:00)
== END 2021-10-22 17:40 | disposition home or self-care (01) ==
LOC: 3BNU 23:41 → EMEROOARM 23:41 → SUATTDRO 10-22 02:45 → 3BNU 10-22 02:54
PROVIDERS: ADMIT Internal Medicine; ATTEND Internal Medicine